=== PATIENT | female | born 1945 | race Caucasian/White ===

== ENCOUNTER 2017-11-23 23:02 | Observation (INO) ==
[2017-11-23] MEDS ORDERED: Ipratropium/Albuterol Neb 3 ML IH ONE (23:19)
[2017-11-23] MEDS ORDERED: methylPREDNISolone 125 MG/2 ML VIAL IVP ONE (23:20)
--- NOTE | 2017-11-23 23:21 | Emergency Department Note ---
Disposition Clinical Impression: Acute exacerbation of chronic obstructive airways disease Disposition: Admitted As Inpatient Condition: Good Referrals: Nash Ren MD [Primary Care Provider] - Forms: ED Satisfaction Letter Time of Disposition: 01:41 SOB HPI - General Chief Complaint: ED Shortness of Breath/Dyspnea Stated Complaint: JOIE Time Seen by Provider: 11/23/17 23:10 Source: patient, EMS Mode of arrival: EMS Limitations: no limitations Nursing Notes Reviewed: Yes Vital Signs Reviewed: Yes - History of Present Illness Patient is a 71-year-old female with past medical history of CHF, COPD, pacemaker placement. She presents today due to shortness of breath. She states that she has been short of breath over the past 2 months. However, it has significantly worsened over the past 1 week. Denies any productive phlegm, any fevers, nausea, vomiting, diarrhea, abdominal pain denies being on any antibiotics or prednisone currently. Denies any increased lower extremity swelling. - Related Data Allergies Allergy/AdvReac Type Severity Reaction Status Date / Time morphine Allergy Rash Verified 11/23/17 23:33 prednisone Allergy Rash Verified 11/23/17 23:33 All systems ED: reviewed and negative except as stated. Constitutional: Denies: fever Cardiovascular: Denies: chest pain, palpitations Respiratory: Reports: cough, dyspnea, wheezes Gastrointestinal: Denies: abdominal pain, nausea, vomiting, diarrhea Genitourinary: Denies: urgency, dysuria Neurological: Denies: headache, weakness, numbness, paresthesias Past Medical History - Past Medical History Attestation: Yes The following information was validated with the patient. Source: patient Physical Exam - General Limitations: no limitations General appearance: alert, in no apparent distress - Head Head exam: atraumatic, normocephalic, normal inspection - Eye Eye exam: Present: normal appearance, PERRL, EOMI - ENT ENT exam: normal exam, normal oropharynx, mucous membranes moist - Neck Neck exam: Present: normal inspection, full ROM, trachea midline - Chest Chest inspection: Present: normal inspection, symmetric chest wall rise - Respiratory Respiratory exam: Present: other (Decreased aeration throughout, wheeze and crackle in bilateral lower lobes.) - Cardiovascular Cardiovascular exam: Present: regular rate, normal rhythm, normal heart sounds - Abdominal Exam Abdominal exam: Present: soft, Non-Tender. Absent: tenderness, distention, guarding, rebound, rigidity - Extremities Exam Extremities exam: Present: normal inspection, full ROM. Absent: tenderness, pedal edema - Neurological Exam Neurological exam: Present: alert, oriented X3 - Psychiatric Psychiatric exam: Present: normal affect, normal mood - Skin Skin exam: Present: warm, dry, intact, normal color Course Course Narrative: Currently concern for COPD exacerbation. Patient given Solu-Medrol, DuoNeb 3. Currently satting 95% on room air but is having some mild to moderate labored breathing. We will obtain chest x-ray, basic blood work. EKG shows no acute ST changes, paced rhythm. Likely admission. 01:40 BNP negative, troponin negative, no elevation white blood cell count. Chest x-ray negative for any acute cardio pulmonary process. Patient is still requiring 2 L nasal cannula oxygen, still has increased work of breathing despite medication. I discussed admission with the patient and she was agreeable with this plan. We will also started azithromycin for COPD exacerbation. Patient was accepted for admission by Dr. Wood. Chest X-Ray 11/23/17 23:18 IMPRESSION: No acute cardiopulmonary disease. D/ / Dheeraj Bateman MD / Dheeraj Bateman MD Interpreting Provider: Dheeraj Bateman MD Vital Signs Temperature 98.4 F 11/23/17 23:06 Pulse Rate 66 11/23/17 23:06 Respiratory Rate 20 11/23/17 23:06 Blood Pressure 153/86 11/23/17 23:06 O2 Sat by Pulse Oximetry 95 11/23/17 23:06 Temperature 98.4 F 11/23/17 23:06 Pulse Rate 62 11/24/17 00:48 Respiratory Rate 17 11/24/17 00:48 Blood Pressure 127/80 11/24/17 00:48 O2 Sat by Pulse Oximetry 97 11/24/17 00:48 Oxygen Delivery Oxygen Delivery Nasal Cannula Shortness of Breath/Dyspnea - [facility] Narrative Medical decision making narrative: Currently concern for COPD exacerbation. Patient given Solu-Medrol, DuoNeb 3. Currently satting 95% on room air but is having some mild to moderate labored breathing. We will obtain chest x-ray, basic blood work. EKG shows no acute ST changes, paced rhythm. Likely admission. 01:40 BNP negative, troponin negative, no elevation white blood cell count. Chest x-ray negative for any acute cardio pulmonary process. Patient is still requiring 2 L nasal cannula oxygen, still has increased work of breathing despite medication. I discussed admission with the patient and she was agreeable with this plan. We will also started azithromycin for COPD exacerbation. Patient was accepted for admission by Dr. Wood. - Medical Records Medical records reviewed: Yes I reviewed the patient's medical records. - Lab Data Lab results reviewed: Yes I reviewed the patient's lab results. Result diagrams: 11/23/17 23:45 11/23/17 23:45 Lab Results 11/23/17 11/23/17 11/23/17 Range/Units 23:45 23:45 23:45 WBC 7.7 (4.3-11.1) K/mcL RBC 4.61 (3.82-4.97) M/mcL Hgb 13.8 (11.5-15.4) g/dL Hct 41.4 (35.3-44.9) % MCV 89.8 (83.0-100.0) fL MCH 29.9 (28.0-33.3) pg MCHC 33.3 (31.6-35.5) g/dL RDW 12.0 (11.5-14.5) % Plt Count 176 (140-400) K/mcL MPV 9.8 (9.4-12.4) fL Immature Gran % 0.4 (0-4) % Seg Neutrophils % 73.5 % Lymphocytes % 16.6 % Monocytes % 8.2 % Eosinophils % 1.0 % Basophils % 0.3 % Neutrophils # 5.6 (1.6-8.9) K/mcL Lymphocytes # 1.3 (0.6-4.6) K/mcL Monocytes # 0.6 (0.0-1.3) K/mcL Eosinophils # 0.1 (0.0-0.6) K/mcL Basophils # 0.0 (0.0-0.2) K/mcL Sodium 140 (136-145) mEq/L Potassium 4.0 (3.5-5.1) mEq/L Chloride 103 (98-107) mEq/L Carbon Dioxide 32 H (23-29) mEq/L BUN 13 (8-23) mg/dL Creatinine 0.68 (0.60-1.20) mg/dL Est GFR ( Amer) > 60 (> 60) Est GFR (Non-Af Amer) > 60 (> 60) BUN/Creatinine Ratio 19 (6-26) Glucose 127 H (70-105) mg/dL Calculated Osmolality 292 (280-300) Lactic Acid 0.8 (0.5-2.2) mmol/L Calcium 9.8 (8.6-10.3) mg/dL Troponin I < 0.03 (< 0.04) ng/mL B-Natriuretic Peptide (Less than 100) pg/mL 11/23/17 Range/Units 23:45 WBC (4.3-11.1) K/mcL RBC (3.82-4.97) M/mcL Hgb (11.5-15.4) g/dL Hct (35.3-44.9) % MCV (83.0-100.0) fL MCH (28.0-33.3) pg MCHC (31.6-35.5) g/dL RDW (11.5-14.5) % Plt Count (140-400) K/mcL MPV (9.4-12.4) fL Immature Gran % (0-4) % Seg Neutrophils % % Lymphocytes % % Monocytes % % Eosinophils % % Basophils % % Neutrophils # (1.6-8.9) K/mcL Lymphocytes # (0.6-4.6) K/mcL Monocytes # (0.0-1.3) K/mcL Eosinophils # (0.0-0.6) K/mcL Basophils # (0.0-0.2) K/mcL Sodium (136-145) mEq/L Potassium (3.5-5.1) mEq/L Chloride (98-107) mEq/L Carbon Dioxide (23-29) mEq/L BUN (8-23) mg/dL Creatinine (0.60-1.20) mg/dL Est GFR ( Amer) (> 60) Est GFR (Non-Af Amer) (> 60) BUN/Creatinine Ratio (6-26) Glucose (70-105) mg/dL Calculated Osmolality (280-300) Lactic Acid (0.5-2.2) mmol/L Calcium (8.6-10.3) mg/dL Troponin I (< 0.04) ng/mL B-Natriuretic Peptide 14 (Less than 100) pg/mL - Radiology Data Radiology results reviewed: Yes I reviewed the patient's radiology results. - EKG Data EKG attestation: Yes I reviewed and interpreted this EKG. EKG results narrative: 11/23/2017 at 23:11. Paced rhythm. Rate 77. ID 124. QRS 170. QTC 4-37. No acute ST elevation or depression.
[2017-11-23 23:57] LABS: Basophils % 0.3 %; Eosinophils # 0.1 K/mcL (0.0-0.6); Hematocrit 41.4 % (35.3-44.9); Hemoglobin 13.8 g/dL (11.5-15.4); Immature Granulocytes % 0.4 % (0-4); Lymphocytes # 1.3 K/mcL (0.6-4.6); Lymphocytes % 16.6 %; Mean Corpuscular HGB Conc 33.3 g/dL (31.6-35.5); Mean Corpuscular Hemoglobin 29.9 pg (28.0-33.3); Mean Corpuscular Volume 89.8 fL (83.0-100.0); Mean Platelet Volume 9.8 fL (9.4-12.4); Monocytes # 0.6 K/mcL (0.0-1.3); Monocytes % 8.2 %; Neutrophils # 5.6 K/mcL (1.6-8.9); Platelet Count 176 K/mcL (140-400); Red Blood Count 4.61 M/mcL (3.82-4.97); Segmented Neutrophils % 73.5 %
--- NOTE | 2017-11-24 00:15 | Emergency Department Note ---
Disposition Clinical Impression: Acute exacerbation of chronic obstructive airways disease Disposition: Still a Patient Referrals: Nash Ren MD [Primary Care Provider] - Forms: ED Satisfaction Letter General Adult HPI - General Chief complaint: ED Shortness of Breath/Dyspnea Stated complaint: JOIE Time Seen by Provider: 11/23/17 23:10 Source: patient, EMS Mode of arrival: EMS Limitations: no limitations - History of Present Illness Pain Scale: 0 - Related Data Allergies Allergy/AdvReac Type Severity Reaction Status Date / Time morphine Allergy Rash Verified 11/23/17 23:33 prednisone Allergy Rash Verified 11/23/17 23:33 Past Medical History - Past Medical History Medical history: Reports: CHF, COPD, hypertension Psychiatric history: Reports: anxiety - Social History Smoking Status: Former smoker Alcohol use: Reports: none Drug use: Reports: none Physical Exam - General Limitations: no limitations General appearance: alert Course - Reevaluation(s) Reevaluation #1: Attestation note I examined this patient and my medical decision-making was reviewed with the emergency medicine resident. I agree with the documented findings, disposition and treatment plan as described except to the extent set forth below. Patient seen with emergency medicine resident Dr. Rikki Cha, Please see a copy of his note for details of the H&P, ED evaluation, management and disposition. I have independently evaluated the patient and confirmed appropriate portions of the history and physical exam. Briefly: 71-year-old female by EMS for increasing shortness breath. Patient has a history of oxygen-dependent COPD and is smoker. She has bilateral expiratory wheezing. Rhonchi. Patient getting DuoNeb steroids chest x-ray screening labs EKG admission anticipated. Provided 30 minutes critical care service for this patient. Disposition pending Time: 00:14 Vital Signs Temperature 98.4 F 11/23/17 23:06 Pulse Rate 66 11/23/17 23:06 Respiratory Rate 20 11/23/17 23:06 Blood Pressure 153/86 11/23/17 23:06 O2 Sat by Pulse Oximetry 95 11/23/17 23:06 Temperature 98.4 F 11/23/17 23:06 Pulse Rate 60 11/23/17 23:53 Respiratory Rate 20 11/23/17 23:53 Blood Pressure 127/101 11/23/17 23:53 O2 Sat by Pulse Oximetry 99 11/23/17 23:53 Oxygen Delivery Oxygen Delivery Aerosol Mask Medical Decision Making - Lab Data Result diagrams: 11/23/17 23:45 Lab Results 11/23/17 11/23/17 Range/Units 23:45 23:45 WBC 7.7 (4.3-11.1) K/mcL RBC 4.61 (3.82-4.97) M/mcL Hgb 13.8 (11.5-15.4) g/dL Hct 41.4 (35.3-44.9) % MCV 89.8 (83.0-100.0) fL MCH 29.9 (28.0-33.3) pg MCHC 33.3 (31.6-35.5) g/dL RDW 12.0 (11.5-14.5) % Plt Count 176 (140-400) K/mcL MPV 9.8 (9.4-12.4) fL Immature Gran % 0.4 (0-4) % Seg Neutrophils % 73.5 % Lymphocytes % 16.6 % Monocytes % 8.2 % Eosinophils % 1.0 % Basophils % 0.3 % Neutrophils # 5.6 (1.6-8.9) K/mcL Lymphocytes # 1.3 (0.6-4.6) K/mcL Monocytes # 0.6 (0.0-1.3) K/mcL Eosinophils # 0.1 (0.0-0.6) K/mcL Basophils # 0.0 (0.0-0.2) K/mcL Lactic Acid 0.8 (0.5-2.2) mmol/L
[2017-11-24 00:25] LABS: BUN/Creatinine Ratio 19 (6-26); Blood Urea Nitrogen 13 mg/dL (8-23); Calcium 9.8 mg/dL (8.6-10.3); Carbon Dioxide 32 mEq/L (23-29); Chloride 103 mEq/L (98-107); Glucose 127 mg/dL (70-105); Osmolality,Calculated 292 (280-300); Sodium 140 mEq/L (136-145); eGFR For African Americans > 60 (> 60); eGFR For Non-African Americans > 60 (> 60)
[2017-11-24 00:26] LABS: Troponin I < 0.03 ng/mL (< 0.04)
[2017-11-24] MEDS ORDERED: Azithromycin 500 MG in D5% in Water 250 ML IVPB ONE (01:05)
[2017-11-24] MEDS ORDERED: Naloxone 0.4 MG/ML INJ IVP PRN (03:42)
[2017-11-24] MEDS ORDERED: Ipratropium/Albuterol Neb 3 ML IH PRN (03:46)
--- NOTE | 2017-11-24 04:34 | Internal Med History&Physical ---
Date of Encounter: 11/24/17 Time of Encounter: 03:00 Internal Medicine - H&P: HPI Chief complaint: Shortness of breath Admitted From: Home Plans for Post Hospital Care: Home History of present illness: Ms. Corrales is a 71 year old female shortness of breath. 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 Patient has progressively increased shortness of breath in last several months. Especially in recent 2-3 weeks, patient needs to use oxygen, which she does not need to use previously. Patient also complaining of intermittent chest heaviness/chest pain, last about 30 minutes for each episode, no radiation. Patient denies nausea or diaphoresis during chest heaviness. Patient has occasionally leg swelling. Patient obviously has exertional intolerance. Patient denies a fever. Patient has a mild nonproductive cough. Patient denies significant body weight loss or body weight gain. In the emergency room , patient was treated with nebulizer and steroid and antibiotic and was admitted as COPD exacerbation. Past Med Surg Social Fam HX - Past Medical History Medical history: CHF, COPD, hypertension Psychiatric history: anxiety - Past Surgical History Surgical History: pacemaker/AICD - Social History Smoking Status: Former smoker Alcohol use: none Drug use: none - Family History Brother Hx Family Cardiac Disorders: Yes (afib) Daughter Hx Family Cardiac Disorders: Yes (tachycardia) Internal Medicine - H&P: Meds Albuterol Sulfate [Ventolin Hfa] 8 gm IH 11/24/17 [History] Aspirin [Adult Aspirin] 81 mg PO DAILY 11/24/17 [History] Carvedilol 3.125 mg PO BID 11/24/17 [History] Fluticasone/Salmeterol [Advair 250-50 Diskus] 11/24/17 [History] Furosemide [Lasix] 10 mg PO DAILY 11/24/17 [History] Lisinopril [Zestril] 20 mg PO DAILY 11/24/17 [History] 3 Allergy/AdvReac Type Severity Reaction Status Date / Time morphine Allergy Rash Verified 11/23/17 23:33 prednisone Allergy Rash Verified 11/23/17 23:33 All Systems PM: A 10-system review of systems was performed and is negative for pertinent findings except as documented above in the HPI. - Constitutional Vitals: Temp Pulse Resp BP Pulse Ox 98.0 F 82 16 144/74 96 11/24/17 02:54 11/24/17 02:54 11/24/17 02:54 11/24/17 02:54 11/24/17 02:54 General appearance: Present: A&O X 3, no acute distress, answers questions appropriately - Head Head exam: Present: atraumatic, normocephalic - Eye Eye exam: Present: PERRL, conjuntiva pink, sclera anicteric Pupils: Present: PERRL - Neck Neck exam general surgery: Present: supple, trachea midline. Absent: lymphadenopathy - Respiratory Respiratory exam: Present: CTAB. Absent: accessory muscle use, rales, rhonchi, wheezes - Cardiovascular Cardiovascular exam: Present: RRR, +S1, +S2. Absent: diastolic murmur, gallop, rubs, systolic murmur - GI/Abdominal GI/Abdominal exam: Present: normal bowel sounds, soft, no peritoneal signs. Absent: distended, tenderness - Extremities Exam Extremities exam: Present: warm, radial pulses palpable and symmetrical. Absent : calf tenderness, cyanotic, pedal edema - Neurological Exam Neurological exam: Present: CN II-XII intact, oriented X3, no focal deficits. Absent: pronater drift, facial droop, speech deficit - Skin Skin exam: Present: dry, intact Internal Med - H&P Results - Labs CBC & Chem 7: 11/23/17 23:45 11/23/17 23:45 - EKG Data -: EKG Interpreted by Myself (Pacemaker rhythm) - Assessment and plan (1) Shortness of breath Current Visit: Yes Status: Acute Assessment and plan: Patient has exertional shortness of breath. Progressively getting worse. Need oxygen at this point. Chest x-ray negative for acute abnormalities. - Consider progressively worsening COPD - Also need to rule out heart disease like pulmonary hypertension. BNP is within normal limit - Place patient on oxygen supportive treatment, inhale bronchodilator and steroid - Check echocardiogram (2) COPD (chronic obstructive pulmonary disease) Current Visit: Yes Status: Acute Assessment and plan: Patient has no wheezing. Continue home medications. Qualifiers: COPD type: emphysema Emphysema type: unspecified Qualified Code(s): J43.9 - Emphysema, unspecified (3) Hypertension Current Visit: Yes Status: Acute Assessment and plan: Continue home medications Qualifiers: Hypertension type: essential hypertension Qualified Code(s): I10 - Essential (primary) hypertension (4) DVT prophylaxis Current Visit: Yes Status: Acute Assessment and plan: Heparin subcutaneously - Time Spent With Patient Total time spent is greater than 50% in coordination of care (as documented) at patient's floor/unit and/or counseling patient: 40 minutes Greater than 35 minutes
[2017-11-24] MEDS: Ipratropium/Albuterol Neb 3 ML IH SCH ×4 (04:48→23:00)
[2017-11-24 05:41] LABS: Basophils % 0.2 %; Hematocrit 42.2 % (35.3-44.9); Hemoglobin 14.3 g/dL (11.5-15.4); Immature Granulocytes % 0.5 % (0-4); Lymphocytes # 0.6 K/mcL (0.6-4.6); Lymphocytes % 10.7 %; Mean Corpuscular HGB Conc 33.9 g/dL (31.6-35.5); Mean Corpuscular Hemoglobin 30.6 pg (28.0-33.3); Mean Corpuscular Volume 90.2 fL (83.0-100.0); Mean Platelet Volume 10.2 fL (9.4-12.4); Monocytes # 0.1 K/mcL (0.0-1.3); Monocytes % 1.5 %; Neutrophils # 5.2 K/mcL (1.6-8.9); Platelet Count 176 K/mcL (140-400); Red Blood Count 4.68 M/mcL (3.82-4.97); Red Cell Distribution Width 11.9 % (11.5-14.5); Segmented Neutrophils % 87.1 %
[2017-11-24 05:55] LABS: BUN/Creatinine Ratio 19 (6-26); Blood Urea Nitrogen 11 mg/dL (8-23); Calcium 9.5 mg/dL (8.6-10.3); Carbon Dioxide 29 mEq/L (23-29); Chloride 103 mEq/L (98-107); Glucose 145 mg/dL (70-105); Magnesium 1.9 mg/dL (1.6-2.6); Osmolality,Calculated 290 (280-300); Phosphorous 2.3 mg/dL (2.7-4.5); Sodium 139 mEq/L (136-145); eGFR For African Americans > 60 (> 60); eGFR For Non-African Americans > 60 (> 60)
[2017-11-24] MEDS: *HR* Heparin 5,000 UNIT/ML VIAL SQ SCH ×2 (05:55→17:41)
[2017-11-24 05:57] LABS: Troponin I < 0.03 ng/mL (< 0.04)
[2017-11-24] MEDS: Aspirin Enteric Coated 81 MG Tablet PO SCH (07:28)
[2017-11-24] MEDS: Lisinopril 20 MG TABLET PO SCH (07:28)
[2017-11-24] MEDS: Budesonide/Formoterol 160/4.5 MDI IH SCH ×2 (10:21→23:00)
[2017-11-24] MEDS: Acetaminophen 325 MG TABLET PO PRN ×2 (14:48→21:18)
[2017-11-24] MEDS: Pantoprazole 40 MG VIAL IVP SCH (14:48)
[2017-11-24] MEDS: Furosemide 20 MG TABLET PO SCH (14:49)
--- NOTE | 2017-11-24 14:51 | Event Note ---
Date of Encounter: 11/24/17 Time of Encounter: 14:48 Patient seen and examined at the bedside. Seen after thorough evaluation of the EMR. She has been admitted here for COPD exacerbation. Patient states she is allergic to prednisone. I will continue her on IV Solu-Medrol for now and then switch her to Medrol Dosepak at the time of discharge. Rest of the assessment and plan as per H&P
[2017-11-24] MEDS: MethylPREDNISolone 40 MG/ML VIAL IVP SCH (17:41)
--- NOTE | 2017-11-24 19:08 | Electrocardiograph Report ---
[address] [place], [place] [address] Test Date: 2017-11-23 Pat Name: Rossy Corrales Department: 102 Room: 3B11 Gender: F [employer]: Ct : 1945 Requested By: Rikki Cha Order Number: [id number] Reading MD: José Miguel Kidd Measurements Intervals [place] Rate: 77 P: 55 AR: 124 QRS: 175 QRSD: 170 T: 34 QT: 405 QTc: 437 Interpretive Statements ELECTRONIC VENTRICULAR PACEMAKER ABNORMAL RHYTHM ECG Electronically Signed On 11-24-2017 19:07:04 EDT by José Miguel Kidd
[2017-11-25] MEDS: Ipratropium/Albuterol Neb 3 ML IH SCH ×4 (03:41→22:45)
[2017-11-25] MEDS: MethylPREDNISolone 40 MG/ML VIAL IVP SCH ×2 (05:13→17:24)
[2017-11-25] MEDS: *HR* Heparin 5,000 UNIT/ML VIAL SQ SCH ×2 (05:14→17:24)
[2017-11-25] MEDS: Acetaminophen 325 MG TABLET PO PRN ×2 (05:23→17:24)
[2017-11-25] MEDS: Furosemide 20 MG TABLET PO SCH (08:06)
[2017-11-25] MEDS: Pantoprazole 40 MG VIAL IVP SCH (08:06)
[2017-11-25] MEDS: Lisinopril 20 MG TABLET PO SCH (08:06)
[2017-11-25] MEDS: Aspirin Enteric Coated 81 MG Tablet PO SCH (08:07)
[2017-11-25] MEDS: Budesonide/Formoterol 160/4.5 MDI IH SCH ×2 (10:27→22:45)
[2017-11-25] MEDS ORDERED: *HR* LORazepam 0.5 MG TABLET PO PRN (13:52)
--- NOTE | 2017-11-25 13:55 | Internal Med Progress Note ---
Date of Encounter: 11/25/17 Time of Encounter: 13:53 - Assessment and plan (1) COPD (chronic obstructive pulmonary disease) Current Visit: Yes Status: Acute Assessment and plan: Acute exacerbation of chronic obstructive pulmonary disease. Patient is intermittently wheezing at this point. I will continue the IV steroids for now. Hoping to transition to oral steroids tomorrow and discharge the patient. She does have home oxygen. Qualifiers: COPD type: emphysema Emphysema type: unspecified Qualified Code(s): J43.9 - Emphysema, unspecified (2) Shortness of breath Current Visit: Yes Status: Acute Assessment and plan: Patient has exertional shortness of breath. Progressively getting worse. Need oxygen at this point. Chest x-ray negative for acute abnormalities. - Consider progressively worsening COPD - Also need to rule out heart disease like pulmonary hypertension. BNP is within normal limit - Place patient on oxygen supportive treatment, inhale bronchodilator and steroid - Check echocardiogram 11/25/17-better today. We will continue to monitor closely. See plan above (3) Hypertension Current Visit: Yes Status: Acute Assessment and plan: Continue to monitor on antihypertensives Qualifiers: Hypertension type: essential hypertension Qualified Code(s): I10 - Essential (primary) hypertension (4) DVT prophylaxis Current Visit: Yes Status: Acute Assessment and plan: Heparin subcutaneously - Time Spent With Patient Total time spent is greater than 50% in coordination of care (as documented) at patient's floor/unit and/or counseling patient: 25 - 35 minutes - Subjective Interval history: Patient continues to be short of breath although improved since yesterday. She denies any new chest pain or fevers at this time - Constitutional Vitals: Temp Pulse Resp BP Pulse Ox 98.0 F 64 16 118/69 97 11/25/17 10:25 11/25/17 10:25 11/25/17 10:29 11/25/17 10:25 11/25/17 10:29 General appearance: Present: A&O X 3, no acute distress, answers questions appropriately Exam: GENERAL: Alert, moderate distress, cooperative EYES: PERRLA, EOMI EARS: External ears normal, canals clear OROPHARYNX: Lips, mucosa, and tongue normal. Teeth and gums normal. Oropharynx normal. NECK: No jugulovenous distention, No carotid bruits, Carotid pulse normal contour, Supple LUNGS: Coarse rhonchi bilateral lung tariq CARDIAC: Normal S1 and S2; no rubs, murmurs, or gallops Internal Medicine: Result - Labs CBC & Chem 7: 11/24/17 05:01 11/24/17 05:01 Labs: Cardiac Enzymes 11/24/17 Range/Units 12:01 Troponin I < 0.03 (< 0.04) ng/mL - Impressions Impressions Echocardiogram 11/24/17 03:48 Impressions: LVEF 55-60%. Normal LV chamber size, wall thickness and function. Mild left ventricular diastolic dysfunction. Atypical septal motion consistent with paced rhythm. Normal right ventricular structure and function. Borderline mild pulmonary hypertension. No significant valvular dysfunction. Left Ventricular Wall Motion: Rest Echo Findings All wall segments showed normal motion. Findings: Study Quality * Technically adequate exam. ECG Findings * Paced rhythm. Left Ventricle * LVEF 55-60%. * Normal LV chamber size, wall thickness and function. * Mild left ventricular diastolic dysfunction. * Atypical septal motion consistent with paced rhythm. Right Ventricle * Normal right ventricular structure and function. Left Atrium * Mildly dilated left atrium. Right Atrium * Mildly dilated right atrium. Aortic Valve * Aortic valve not well visualized. * No aortic regurgitation. * No aortic stenosis. Mitral Valve * Normal mitral valve structure and function. * No mitral regurgitation. * No mitral stenosis. Tricuspid Valve * Normal tricuspid valve structure and function. * Trace tricuspid regurgitation. * Borderline mild pulmonary hypertension. Pulmonic Valve * Normal pulmonic valve structure and function. * No pulmonic regurgitation. Aorta * Normally sized aortic root. Pericardium * The pericardium appears normal. IVC * Normal IVC dimensions and inspiratory collapse. Pulmonary Artery * Normal visualized portions of the main pulmonary artery. Device lead * A device lead was visualized in the right atrium and right ventricle. Consult Discharge Plan - Plan Referrals: Nash Ren MD [Primary Care Provider] -
[2017-11-26] MEDS: Ipratropium/Albuterol Neb 3 ML IH SCH ×2 (04:20→10:38)
[2017-11-26] MEDS: *HR* Heparin 5,000 UNIT/ML VIAL SQ SCH (05:49)
[2017-11-26] MEDS: MethylPREDNISolone 40 MG/ML VIAL IVP SCH (05:49)
[2017-11-26 07:36] VITALS: BP 108/58
[2017-11-26] MEDS: Aspirin Enteric Coated 81 MG Tablet PO SCH (07:43)
[2017-11-26] MEDS: Lisinopril 20 MG TABLET PO SCH (07:43)
[2017-11-26] MEDS: Furosemide 20 MG TABLET PO SCH (07:43)
[2017-11-26] MEDS: Pantoprazole 40 MG VIAL IVP SCH (07:43)
--- NOTE | 2017-11-26 09:54 | Discharge Summary ---
<Sagar Love S - Last Filed: 11/26/17 13:36> - NOTES TO OUTPATIENT PROVIDER Notes to Outpatient Provider: Pt admitted for COPD exacerbation.She had complaints of SOB on friday afternoon and started getting palpiltations, feeling like she coulnd't breathe and like her chest had dull pain on the left side, no radiation. She was on IV steroids in the hospital and will be transferred to PO steroids today and discharged. D/c on Medrol pack. Pt should follow up for COPD management and to evaluate possible mild pulmonary HTN further. ECHO showed EF 55-60% with mild pulmonary HTN. Pt should be vaccinated for pneumococcal species if she hasn't already. Encourage flu vaccine this winter. Date of Encounter: 11/26/17 Time of Encounter: 09:30 - Discharge Diagnosis (1) COPD (chronic obstructive pulmonary disease) Priority: Primary Status: Chronic Assessment and Plan: Acute on chronic COPD exacerbation. Duonebs and Symbicort given for symptoms. Pt was on IV methylprednisolone and will be transferred to PO steroids today. Gave Medrol dose pack taper. She is on home oxygen as needed. Weaning patient off oxygen Pt denies cough, mucus production. No indication that there is infxn. CXR showed no consolidation or acute cardiopulonary processes. No antibiotics indicated Discharge pt. Qualifiers: COPD type: emphysema Emphysema type: unspecified Qualified Code(s): J43.9 - Emphysema, unspecified (2) Hypertension Priority: Secondary Status: Chronic Assessment and Plan: Continue to monitor Pt is on anti hypertensive medications - carvediol BP today is 108/58; stable BP and controlled Qualifiers: Hypertension type: essential hypertension Qualified Code(s): I10 - Essential (primary) hypertension (3) DVT prophylaxis Priority: Secondary Status: Acute Assessment and Plan: SQ heparin Hospital course: Ms. Corrales is a 71 year old female that came to hospital on friday. Pt admitted for COPD exacerbation.She had complaints of SOB on friday afternoon and started getting palpiltations, feeling like she coulnd't breathe and like her chest had dull pain on the left side, no radiation. She was on IV steroids in the hospital and will be transferred to PO steroids today and discharged. Will put pt on Medrol dose pack 4mg taper. ECHO showed LVEF 55-60% , mild pulmonary HTN, and LV diastolic dysfxn CXR showed no acute cardiopulmonary process Pt will be weaned off 2L O2 today to 1L. SHe is on home oxygen as needed. Pt should be vaccinated for pneumococcal species if she hasn't already. Encourage flu vaccine this winter. Discharge discussed with: patient Time spent discussing smoking cessation with patient: 3 to 10 minutes - Time Spent with Patient Total time spent providing and/or coordinating discharge services: Less than 30 minutes - Discharge Medications Prescriptions: MethylPREDNISolone [MethylPREDNISolone Dose Pack] 4 mg PO TAPER #21 tab Home Medications: Albuterol Neb [Proventil Neb] 3 ml IH TID 11/24/17 [History] Albuterol Sulfate [Ventolin Hfa] 2 puff IH Q4H 11/24/17 [History] Aspirin [Adult Aspirin] 81 mg PO DAILY 11/24/17 [History] Carvedilol [Carvedilol] 12.5 mg PO BID 11/24/17 [History] DiphenhydraMINE [Benadryl] 25 mg PO HS 11/24/17 [History] Fluticasone/Salmeterol [Advair 250-50 Diskus] 1 puff IH BID 11/24/17 [History] Furosemide [Lasix] 20 mg PO DAILY 11/24/17 [History] LORazepam [Ativan] 0.5 mg PO BID PRN 11/24/17 [History] Lisinopril [Zestril] 20 mg PO DAILY 11/24/17 [History] MethylPREDNISolone [MethylPREDNISolone Dose Pack] 4 mg PO TAPER #21 tab [Rx] Allergies/Adverse Reactions: 3 Allergy/AdvReac Type Severity Reaction Status Date / Time morphine Allergy Rash Verified 11/24/17 20:22 prednisone Allergy Rash Verified 11/24/17 20:22 Date of admission: 11/24/17 01:43 Primary care physician: Nash Ren MD - Constitutional Vitals: Temp Pulse Resp BP Pulse Ox 98.1 F 61 18 108/58 97 11/26/17 07:33 11/26/17 07:33 11/26/17 07:33 11/26/17 07:33 11/26/17 07:54 General appearance: Present: A&O X 3, no acute distress, answers questions appropriately - Head Head exam: Present: normal inspection - Neck Neck exam general surgery: Present: supple - Respiratory Respiratory exam: Present: decreased breath sounds, prolonged expiratory phase - Cardiovascular Cardiovascular exam: Present: RRR, +S1, +S2 - GI/Abdominal GI/Abdominal exam: Present: normal bowel sounds, no peritoneal signs - Extremities Exam Extremities exam: Present: normal capillary refill, normal inspection - Neurological Exam Neurological exam: Present: no focal deficits - Psychiatric Psychiatric exam: Present: normal affect, normal mood - Skin Skin exam: Present: intact - Patient Status Disposition: Home, Self-Care Condition: Good Functional capacity at discharge: independent ambulation Overall status at discharge: patient is progressing back to baseline - Discharge Instructions Instructions: Chronic Obstructive Pulmonary Disease (DC), Chronic Hypertension (DC), Dyspnea (GEN) Follow Up With: Nash Ren MD [Primary Care Provider] - 12/03/17 10:15 am - Diet and Activity Activity: increase activity as tolerated Diet: low fat, low cholesterol, low salt diet <CoryBjcayetano Guzman - Last Filed: 11/26/17 13:55> Date of Encounter: 11/26/17 - Discharge Diagnosis (1) COPD (chronic obstructive pulmonary disease) Status: Chronic (2) Hypertension Status: Chronic (3) DVT prophylaxis Status: Acute Hospital course: Ms. Corrales is a 71 year old female - Time Spent with Patient Total time spent providing and/or coordinating discharge services: Date of admission: 11/24/17 01:43 Primary care physician: Nash Ren MD - Constitutional Vitals: Temp Pulse Resp BP Pulse Ox 98.1 F 61 18 108/58 90 11/26/17 07:33 11/26/17 07:33 11/26/17 10:59 11/26/17 07:33 11/26/17 10:59 - Attending Attestation Patiet seen and examined with resident and participated in mosqueda clinical decision making Clinically doing much better Exam lynch- RS- wheezing improved Okay or DC w prolonged taper ( Medrol dose pk) Follow with PCP outpatient
[2017-11-26] MEDS: Acetaminophen 325 MG TABLET PO PRN (10:38)
[2017-11-26] MEDS: Budesonide/Formoterol 160/4.5 MDI IH SCH (10:58)
--- NOTE | 2017-11-26 18:58 | Electrocardiograph Report ---
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
== END 2017-11-26 11:13 | disposition home or self-care (01) ==
LOC: 3NENU 23:02 → EMEROO 23:02 → SUATTDRO 11-24 01:43 → 3NENU 11-24 03:13 → 3BNU 11-24 14:03
PROVIDERS: ADMIT Internal Medicine; ATTEND Internal Medicine

== ENCOUNTER 2018-03-20 01:50 | Inpatient (IN) ==
[2018-03-20] MEDS ORDERED: Ipratropium/Albuterol Neb 3 ML IH ONE ×3 (01:59→05:41)
--- NOTE | 2018-03-20 02:15 | Emergency Department Note ---
Disposition Clinical Impression: Shortness of breath, Tachycardia, Elevated troponin Pneumonia Qualifiers: Pneumonia type: due to unspecified organism Laterality: right Lung location: middle lobe of lung Qualified Code(s): J18.1 - Lobar pneumonia, unspecified organism Disposition: Admitted As Inpatient Condition: Good Time of Disposition: 03:11 General Adult HPI - General Chief complaint: ED Shortness of Breath/Dyspnea Stated complaint: jose l Time Seen by Provider: 03/20/18 01:55 Source: patient, EMS Limitations: no limitations Nursing Notes Reviewed: Yes Vital Signs Reviewed: Yes - History of Present Illness HPI Narrative: Patient is a 72 year old female that presents emergency department for shortness of breath. Patient states this is been ongoing for the last 24-48 hours. Patient states that she has had a cough as well with productive green sputum. Patient states that she has a history of COPD and her breathing has gotten worse. Patient states that she does use oxygen as needed at home. Patient states that she wears 2 L of oxygen as needed at home however has been requiring to wear oxygen continuously due to having worsening of her respiratory status. Patient states that she does use breathing treatments at home and they have been helping however this evening she stated that the breathing treatment did not relieve her symptoms. Patient denies any fever. Patient denies any chest pain at this time. Pain Scale: 0 - Related Data Home Medications Medication Instructions Recorded Confirmed Albuterol Neb [Proventil Neb] 3 ml IH TID 11/24/17 11/24/17 Albuterol Sulfate [Ventolin Hfa] 2 puff IH Q4H 11/24/17 11/24/17 Aspirin [Adult Aspirin] 81 mg PO DAILY 11/24/17 11/24/17 Carvedilol 12.5 mg PO BID 11/24/17 11/24/17 DiphenhydraMINE [Benadryl] 25 mg PO HS 11/24/17 11/24/17 Fluticasone/Salmeterol [Advair 1 puff IH BID 11/24/17 11/24/17 250-50 Diskus] Furosemide [Lasix] 20 mg PO DAILY 11/24/17 11/24/17 RX: LORazepam [Ativan] 0.5 mg PO BID PRN 11/24/17 11/24/17 RX: Lisinopril [Zestril] 20 mg PO DAILY 11/24/17 11/24/17 Previous Rx's Medication Instructions Recorded MethylPREDNISolone 4 mg PO TAPER #21 tab 11/26/17 [MethylPREDNISolone Dose Pack] Allergies Allergy/AdvReac Type Severity Reaction Status Date / Time morphine Allergy Rash Verified 11/24/17 20:22 prednisone Allergy Rash Verified 11/24/17 20:22 All systems ED: reviewed and negative except as stated. Constitutional: Denies: fever Cardiovascular: Denies: chest pain Respiratory: Reports: cough, dyspnea, sputum production Gastrointestinal: Denies: abdominal pain, nausea, vomiting Past Medical History - Past Medical History Medical history: Reports: CHF, COPD, hypertension Surgical history: Reports: pacemaker/AICD Psychiatric history: Reports: anxiety - Social History Smoking Status: Former smoker Alcohol use: Reports: none Drug use: Reports: none Physical Exam - General Limitations: no limitations General appearance: alert, in no apparent distress - Head Head exam: atraumatic, normocephalic - Eye Eye exam: Present: normal appearance, EOMI - Neck Neck exam: Present: normal inspection, full ROM, trachea midline - Respiratory Respiratory exam: Present: wheezes. Absent: respiratory distress - Cardiovascular Cardiovascular exam: Present: normal rhythm, tachycardia, normal heart sounds, +S1, +S2 - Abdominal Exam Abdominal exam: Present: soft, Non-Tender, normal bowel sounds - Extremities Exam Extremities exam: Present: other (Trace peripheral edema.) - Neurological Exam Neurological exam: Present: alert, oriented X3 - Psychiatric Psychiatric exam: Present: normal affect, normal mood - Skin Skin exam: Present: warm, dry, intact Course Vital Signs Temperature 98.1 F 03/20/18 01:54 Pulse Rate 108 03/20/18 01:54 Respiratory Rate 24 03/20/18 01:54 Blood Pressure 137/96 03/20/18 01:54 O2 Sat by Pulse Oximetry 100 03/20/18 01:54 Temperature 98.1 F 03/20/18 01:54 Pulse Rate 108 03/20/18 01:54 Respiratory Rate 29 03/20/18 02:06 Blood Pressure 137/96 03/20/18 01:54 O2 Sat by Pulse Oximetry 99 03/20/18 02:06 Oxygen Delivery Oxygen Delivery Nasal Cannula Medical Decision Making - MDM Narrative Medical decision making narrative: Due the patient's into the emergency department with increased shortness of breath we will obtain basic laboratory testing, EKG and chest x-ray. Patient will also be provided with a DuoNeb breathing treatment here in the emergency department due to the patient having wheezing on exam. Patient did receive the breathing treatment stated did help some but is still feeling short of breath. Patient is requiring increased oxygen from her baseline. Patient requiring 4 L of oxygen here in the emergency department to maintain her oxygen saturation in the mid upper 90s. Patient was found to have a right middle lobe pneumonia on chest x-ray. Patient has been tachycardic into. I do not feel the patient is in severe sepsis and does not require a fluid bolus at this time. Patient will be started on Levaquin IV here in the emergency department will need to be admitted to the hospital for further evaluation and management. I called and spoke with the admitting hospitalist Dr. Arroyo and he has accepted the patient to their service. Patient be admitted to the hospital at this time for further evaluation and management. - Medical Records Medical records reviewed: Yes I reviewed the patient's medical records. - Lab Data Lab results reviewed: Yes I reviewed the patient's lab results. Result diagrams: 03/20/18 02:19 03/20/18 02:19 Lab Results 03/20/18 Range/Units 02:19 WBC 10.1 (4.3-11.1) K/mcL RBC 4.99 H (3.82-4.97) M/mcL Hgb 14.9 (11.5-15.4) g/dL Hct 45.4 H (35.3-44.9) % MCV 91.0 (83.0-100.0) fL MCH 29.9 (28.0-33.3) pg MCHC 32.8 (31.6-35.5) g/dL RDW 12.0 (11.5-14.5) % Plt Count 192 (140-400) K/mcL MPV 9.7 (9.4-12.4) fL - Radiology Data Radiology results reviewed: Yes I reviewed the patient's radiology results. Chest X-Ray 03/20/18 01:56 IMPRESSION: Middle lobe atelectasis or pneumonia. D/ / Galileo Hunter MD / Galileo Hunter MD Interpreting Provider: Galileo Hunter MD - EKG Data EKG #1 EKG attestation: Yes I reviewed and interpreted this EKG. EKG results narrative: EKG shows a paced rhythm at 105 bpm, SC interval of 74, QRS duration of 137 QTC of 544. No evidence of STEMI on EKG. Attestation Statement - Attestation Attestation: Dr Daly note: Pt seen in conjunction w/ Resident Dr Chavez. Please see his charting for complete documentation. I spent face to face time w/ the pt and agree w/ the pt's treatment and disposition; Pt has progressive sob/cough/fever (subjetive) for the past 1 wk; increase in baseline oxygen requirement; + yellow sputum production; labs reviwed; cxr shows new rt middle lobe pneumonia; will require admission for pneumonia w/ hypoxia;
[2018-03-20 02:37] LABS: Hematocrit 45.4 % (35.3-44.9); Hemoglobin 14.9 g/dL (11.5-15.4); Mean Corpuscular HGB Conc 32.8 g/dL (31.6-35.5); Mean Corpuscular Hemoglobin 29.9 pg (28.0-33.3); Mean Platelet Volume 9.7 fL (9.4-12.4); Platelet Count 192 K/mcL (140-400); Red Blood Count 4.99 M/mcL (3.82-4.97)
[2018-03-20 02:54] LABS: BUN/Creatinine Ratio 14 (6-26); Blood Urea Nitrogen 8 mg/dL (8-23); Calcium 9.6 mg/dL (8.6-10.3); Carbon Dioxide 32 mEq/L (23-29); Chloride 96 mEq/L (98-107); Glucose 140 mg/dL (70-105); Osmolality,Calculated 281 (280-300); Potassium 4.2 mEq/L (3.5-5.1); Sodium 135 mEq/L (136-145); eGFR For Non-African Americans > 60 (> 60)
[2018-03-20 02:57] LABS: Troponin I 0.05 ng/mL (< 0.04)
[2018-03-20] MEDS ORDERED: Levofloxacin 750 MG/150 ML 750 MG/150 ML BAG IVPB ONE (03:10)
[2018-03-20] MEDS ORDERED: Ipratropium/Albuterol Neb 3 ML ONE (05:29)
[2018-03-20] MEDS ORDERED: methylPREDNISolone 125 MG/2 ML VIAL IVP ONE (08:14)
[2018-03-20] MEDS: Ipratropium/Albuterol Neb 3 ML IH SCH ×5 (08:41→23:10)
[2018-03-20] MEDS ORDERED: Naloxone 0.4 MG/ML INJ IVP PRN (08:59)
--- NOTE | 2018-03-20 09:05 | Internal Med History&Physical ---
Date of Encounter: 03/20/18 Time of Encounter: 07:00 Internal Medicine - H&P: HPI Chief complaint: Shortness of breath Admitted From: Home Plans for Post Hospital Care: Home History of present illness: Ms. Corrales is a 72 year old female with history of COPD on home oxygen presented to the emergency department with complaint of shortness of breath. As per patient her symptoms began 48 hours prior to admission and progressively worsened to the point that she could not catch her breath so she decided to come to the emergency department for further evaluation. There is at rest and on ambulation. She reports that her symptoms are similar to the symptoms that she had where she was admitted for COPD exacerbation in November 2017. She does report that she is compliant with her home oxygen and inhalers however her symptoms began suddenly and progressed rapidly. She denies sick contacts, recent antibiotics use. He tried her nebulizer treatments at home however they were ineffective. She cannot recall alleviating factors however ambulation aggravates her shortness of breath. She denies leg swelling, calf tenderness, prolonged immobilization. She does complain of cough with productive yellow to green sputum, denies hemoptysis. She does report that she has had a previous intubation for similar symptoms 5 years ago. She denies fever, chills, palpitations, chest pain, nausea, vomiting, diarrhea, heat or cold intolerance. In the emergency department chest x-ray performed which showed possible middle lobe pneumonia and she was endorsed for admission for further management. Past Med Surg Social Fam HX - Past Medical History Medical history: CHF, COPD, hypertension Psychiatric history: anxiety - Past Surgical History Surgical History: pacemaker/AICD - Social History Smoking Status: Former smoker Alcohol use: none Drug use: none - Family History Brother History Unknown: Yes Hx Family Cardiac Disorders: Yes (afib) Daughter History Unknown: Yes Hx Family Cardiac Disorders: Yes (tachycardia) Internal Medicine - H&P: Meds Albuterol Neb [Proventil Neb] 3 ml IH TID 11/24/17 [History] Albuterol Sulfate [Ventolin Hfa] 2 puff IH Q4H 11/24/17 [History] Aspirin [Adult Aspirin] 81 mg PO DAILY 11/24/17 [History] Carvedilol 12.5 mg PO BID 11/24/17 [History] DiphenhydraMINE [Benadryl] 25 mg PO HS 11/24/17 [History] Fluticasone/Salmeterol [Advair 250-50 Diskus] 1 puff IH BID 11/24/17 [History] Furosemide [Lasix] 20 mg PO DAILY 11/24/17 [History] LORazepam [Ativan] 0.5 mg PO BID PRN 11/24/17 [History] Lisinopril [Zestril] 20 mg PO DAILY 11/24/17 [History] Cefdinir [Omnicef] 300 mg PO BID 03/20/18 [History] Allergy/AdvReac Type Severity Reaction Status Date / Time morphine Allergy Rash Verified 11/24/17 20:22 prednisone AdvReac See Verified 03/20/18 08:18 Comments All Systems PM: review of systems was performed and is negative for pertinent findings except as documented above in the HPI. - Constitutional Vitals: Temp Pulse Resp BP Pulse Ox 98 F 100 18 164/68 100 03/20/18 07:35 03/20/18 07:35 03/20/18 08:41 03/20/18 07:35 03/20/18 08:41 Exam: General: Patient is alert, oriented, mild distress distress, these, speaks in 5 word sentences Head: atraumatic, normocephalic, Eye: normal appearance, PERRL, no scleral icterus, no conjunctival injection ENT: mucous membranes moist, normal external ear exam Neck: normal inspection, trachea midline, full ROM, no carotid bruits Chest: normal inspection, symmetric chest rise Respiratory: Diffuse wheezing in the posterior lung tariq, decreased breath sounds in the right posterior lung field as compared to the left with occasional crackles, using accessory abdominal muscles Cardiovascular: Tachycardic, s1 and s2 No clicks, rubs, gallops, or murmors. Abdomen: Bowel sounds present normoactive x-4 quadrants. Abdomen is soft, nondistended. no Epigastric tenderness. No guarding or rebound. No organomegaly noted, obese musculoskeletal: Spontaneously moving all extremities. no edema, no calf tenderness Skin: warm, dry, intact. Neuro: Alert and oriented x4. Sensation light touch intact. Cranial nerves 2- 12 is intact. No focal deficit Psych: Patient's affect is anxious Internal Med - H&P Results - Labs CBC & Chem 7: 03/20/18 02:19 03/20/18 02:19 Labs: Short CBC 03/20/18 Range/Units 02:19 WBC 10.1 (4.3-11.1) K/mcL Hgb 14.9 (11.5-15.4) g/dL Hct 45.4 H (35.3-44.9) % Plt Count 192 (140-400) K/mcL BMP 03/20/18 02:19 Sodium 135 L Potassium 4.2 Chloride 96 L Carbon Dioxide 32 H BUN 8 Creatinine 0.58 L Glucose 140 H Calcium 9.6 Cardiac Enzymes 03/20/18 03/20/18 Range/Units 02:19 08:21 Troponin I 0.05 H* 0.07 H* (< 0.04) ng/mL - EKG Data -: EKG Interpreted by Myself (atrial sensed ventricular paced complexes ) - Impressions ITS Impressions Chest X-Ray 03/20/18 01:56 IMPRESSION: Middle lobe atelectasis or pneumonia. D/ / Galileo Hunter MD / Galileo Hunter MD Interpreting Provider: Galileo Hunter MD - Assessment and plan (1) Pneumonia Current Visit: Yes Status: Acute Assessment and plan: Right middle lobe pneumonia Started on IV Levaquin in the emergency department we will continue Follow urine antigens Sputum cultures Respiratory viral panel Oxygen via nasal cannula keep sats greater than [address] chest if symptoms do not improve CXR: IMPRESSION: Middle lobe atelectasis or pneumonia. Qualifiers: Pneumonia type: due to unspecified organism Laterality: right Lung location: middle lobe of lung Qualified Code(s): J18.1 - Lobar pneumonia, unspecified organism (2) Acute exacerbation of chronic obstructive airways disease Current Visit: No Status: Acute Assessment and plan: Secondary to above Antibiotics as per above ABG stat Solu-Medrol 125 mg once and continue with 40 mg every 8 hours DuoNeb's every 4 hours Continue with home inhalers BiPAP when necessary for respiratory distress Low threshold for intubation Follow urine antigens, respiratory viral panel, and sputum cultures (3) Acute and chronic respiratory failure with hypoxia Current Visit: Yes Status: Acute Assessment and plan: Secondary to above Management as per above (4) Elevated troponin Current Visit: Yes Status: Acute Assessment and plan: Troponin mildly elevated 0.05 to 0.07- chest pain-free since admission Most likely secondary to demand versus supply mismatch from tachycardia cannot rule out underlying CAD Doubt PEWells criteria 1.5 Continue cardiac monitoring Continue home medications if not contraindicated Lipid panels in the morning Consider cardiology consult TTE: 11/2017-Impressions: LVEF 55-60%. Normal LV chamber size, wall thickness and function. Mild left ventricular diastolic dysfunction. Atypical septal motion consistent with paced rhythm. Normal right ventricular structure and function. Borderline mild pulmonary hypertension. No significant valvular dysfunction. (5) (HFpEF) heart failure with preserved ejection fraction Current Visit: Yes Status: Acute Assessment and plan: Currently not in acute exacerbation We will continue home medications if not contraindicated Intake and output BNP 14 TTE November 2017 Impressions: LVEF 55-60%. Normal LV chamber size, wall thickness and function. Mild left ventricular diastolic dysfunction. Atypical septal motion consistent with paced rhythm. Normal right ventricular structure and function. Borderline mild pulmonary hypertension. No significant valvular dysfunction. (6) DVT prophylaxis Current Visit: No Status: Acute Assessment and plan: Heparin subcutaneous (7) Obesity (BMI 30.0-34.9) Current Visit: Yes Status: Acute Assessment and plan: BMI 30.7 Nutrition consult - Time Spent With Patient Total time spent is greater than 50% in coordination of care (as documented) at patient's floor/unit and/or counseling patient:
[2018-03-20 09:13] LABS: ABG Base Excess 7 mEq/L (-2 to 3); ABG HCO3 37 mEq/L (21-27); ABG Oxygen Saturation 100 % (95-98); ABG PCO2 71 mmHg (35-45); ABG PH 7.32 pH Units (7.32-7.45); ABG PO2 185 mmHg (85-104); ABG TCO2 39 mEq/L (20-26)
[2018-03-20] MEDS ORDERED: Budesonide/Formoterol 80/4.5 MDI IH SCH (10:00)
[2018-03-20] MEDS: Aspirin Enteric Coated 81 MG Tablet PO SCH (10:01)
[2018-03-20] MEDS: Lisinopril 20 MG TABLET PO SCH (10:01)
[2018-03-20] MEDS: Furosemide 20 MG TABLET PO SCH (10:01)
[2018-03-20 11:56] LABS: ABG Base Excess 8 mEq/L (-2 to 3); ABG HCO3 38 mEq/L (21-27); ABG Oxygen Saturation 97 % (95-98); ABG PCO2 77 mmHg (35-45); ABG PO2 105 mmHg (85-104); ABG TCO2 40 mEq/L (20-26)
--- NOTE | 2018-03-20 12:30 | Pulmonology Consult Note ---
Date of Encounter: 03/20/18 Time of Encounter: 12:29 Assessment and Plan (1) Acute on chronic respiratory failure with hypoxia and hypercapnia Current Visit: Yes Status: Acute This is secondary to COPD exacerbation and possibly pneumonia. Excellent oxygenation There is impairment in gas exchange however with resultant hypercapnia which is modestly increased from baseline CO2 retention. I do not feel that the patient is not an imminent risk of further decline requiring intubation Any supplemental oxygen through BiPAP to keep saturation greater than 88% On BiPAP settings are 18/8 and I did not try to decrease that while was in the room with the patient and that appears that her air hunger is being satiated at this point with the higher pressures so it is reasonable to continue ABG is reassuring would repeat VBG in 4-6 hours Keep nothing by mouth at present and Continue noninvasive ventilation through the course of the afternoon patient feeling better by dinner then she this could be removed and she could eat with the rest off noninvasive ventilation for several hours if she is able to tolerate that then she could resume BiPAP on an as-needed basis if however she continues to have for difficulty with breathing or worsening respiratory status patient should be nothing by mouth while on BiPAP to the course of the day (2) Pneumonia Current Visit: Yes Status: Acute There is questionable right middle lobe infiltrate no evidence of leukocytosis or fever Recommend obtaining urine Legionella and strep pneumo antigens Send respiratory infection panel Click sputum culture and blood culture Agree with treatment for community-acquired organisms currently she is on Levaqu in MRSA nasal screen Treatment will be dependent upon clinical response generally 5-8 days for treat ment is sufficient Qualifiers: Pneumonia type: due to unspecified organism Laterality: right Lung location: middle lobe of lung Qualified Code(s): J18.1 - Lobar pneumonia, unspecified organism (3) Acute exacerbation of chronic obstructive airways disease Current Visit: No Status: Acute Schedule duo nebs every 4 hours with every 2 hour albuterol Agree with IV glucocorticoids today can likely transition to by mouth glucocorticoids to complete a two-week taper in the next 24-48 hours Symbicort dosing to 2 puffs 160/4.5 BID daily Tobacco abuse in remission Outpatient pulmonary follow-up for optimization given high-risk features of multiple hospitalizations for exacerbations this year (4) Elevated troponin Current Visit: Yes Status: Acute Modest elevation in troponin and she denies chest pain at present. Would trend troponin at this time consider repeating echocardiogram she is at risk for coronary artery disease but I suspect this is more related to demand ischemia consider cardiology consultation based upon troponin results Recommend DVT prophylaxis (chemical) unless contraindication arises Thank You for the consultation pulmonary will continue to follow History of Present Illness Consult date: 03/20/18 Requesting physician: Brii José Reason for consult: COPD Chief complaint: Difficulty in Breathing History of present illness: This is a pleasant 72-year-old woman with a past medical history of COPD complicated by chronic respiratory failure using 2 L of oxygen at all times she also has a history of CHF status post AICD placement in the past. She presented for shortness of breath for 48 hours prior to admission to the hospital complicated by cough with productive green phlegm increased shortness of breath and wheezing. Was seen by her PCP and was started on a course of oral cephalosporin without improvement she is also given some steroids but she did not take it because she says it makes her feel flushed. Was admitted to the hospital from the ED found to have possible right middle lobe pneumonia placed on Levaquin was also given breathing treatments and IV glucocorticoids ABG was performed because of respiratory distress and was notable for acute on chronic hypoxic hypercapnic respiratory failure was a mildly elevated CO2 from baseline she is currently on BiPAP. When I spoke with her she says she is relatively comfortable and appreciates the positive airway pressure thinks it is helping her breathe better. She is a former smoker of about 50 years but quit in 2005. She keeps 2 dogs at home but no exotic pets. Unfortunately she has had one othe r admission to the hospital within the last 6 months for respiratory failure and COPD exacerbation. 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 Past Med Surg Social Fam HX - Past Medical History Medical history: CHF, COPD, hypertension Psychiatric history: anxiety - Past Surgical History Surgical History: pacemaker/AICD - Social History Smoking Status: Former smoker Alcohol use: none Drug use: none - Family History Brother History Unknown: Yes Hx Family Cardiac Disorders: Yes (afib) Daughter History Unknown: Yes Hx Family Cardiac Disorders: Yes (tachycardia) Medications and Allergies Albuterol Neb [Proventil Neb] 3 ml IH TID 11/24/17 [History] Albuterol Sulfate [Ventolin Hfa] 2 puff IH Q4H 11/24/17 [History] Aspirin [Adult Aspirin] 81 mg PO DAILY 11/24/17 [History] Carvedilol 12.5 mg PO BID 11/24/17 [History] DiphenhydraMINE [Benadryl] 25 mg PO HS 11/24/17 [History] Fluticasone/Salmeterol [Advair 250-50 Diskus] 1 puff IH BID 11/24/17 [History] Furosemide [Lasix] 20 mg PO DAILY 11/24/17 [History] LORazepam [Ativan] 0.5 mg PO BID PRN 11/24/17 [History] Lisinopril [Zestril] 20 mg PO DAILY 11/24/17 [History] Cefdinir [Omnicef] 300 mg PO BID 03/20/18 [History] Allergy/AdvReac Type Severity Reaction Status Date / Time morphine Allergy Rash Verified 11/24/17 20:22 prednisone AdvReac See Verified 03/20/18 08:18 Comments All Systems: The remainder of the systems were reviewed and are negative Physical Examination Vital Signs: Vital Signs, Last 4 Hours Temp Pulse Resp BP Pulse Ox 03/20/18 12:25 24 97 03/20/18 11:04 97.8 F 86 18 136/63 98 03/20/18 10:20 99 03/20/18 09:12 27 99 03/20/18 08:41 18 100 General appearance: no acute distress Eyes: nonicteric Neck: supple, no lymphadenopathy Effort: mildly labored Auscultation: bilateral: diminished breath sounds, wheezes (expiratory wheezes. ) Cardiovascular: other (Rapid rate regular rhythm) Gastrointestinal: normoactive bowel sounds, soft, non-tender Integumentary: normal Extremities: no cyanosis, no edema, no clubbing Musculoskeletal: no deformities normal mental status, non-focal exam, pupils equal and round mood appropriate Results - Laboratory Findings CBC and BMP: 03/20/18 02:19 03/20/18 02:19 ABG ABG pH 7.30 pH Units (7.32-7.45) L 03/20/18 11:52 ABG pCO2 77 mmHg (35-45) H* 03/20/18 11:52 ABG pO2 105 mmHg (85-104) H D 03/20/18 11:52 ABG O2 Saturation 97 % (95-98) 03/20/18 11:52 Abnormal lab findings: Abnormal lab results RBC 4.99 M/mcL (3.82-4.97) H 03/20/18 02:19 Hct 45.4 % (35.3-44.9) H 03/20/18 02:19 ABG pH 7.30 pH Units (7.32-7.45) L 03/20/18 11:52 ABG pCO2 77 mmHg (35-45) H* 03/20/18 11:52 ABG pO2 105 mmHg (85-104) H D 03/20/18 11:52 ABG HCO3 38 mEq/L (21-27) H 03/20/18 11:52 ABG Total CO2 40 mEq/L (20-26) H 03/20/18 11:52 ABG Base Excess 8 mEq/L (-2 to 3) H 03/20/18 11:52 Sodium 135 mEq/L (136-145) L 03/20/18 02:19 Chloride 96 mEq/L (98-107) L 03/20/18 02:19 Carbon Dioxide 32 mEq/L (23-29) H 03/20/18 02:19 Creatinine 0.58 mg/dL (0.60-1.20) L 03/20/18 02:19 Glucose 140 mg/dL (70-105) H 03/20/18 02:19 Troponin I 0.07 ng/mL (< 0.04) H* 03/20/18 08:21 TSH 0.312 mcIU/mL (0.340-5.600) L 03/20/18 10:03 - Microbiology Findings Microbiology Findings: Microbiology, Last 48 Hours 03/20/18 10:03 Blood Culture - Preliminary Peripheral Venipuncture Culture is incubating and being continuously monitored for growth. Final report to follow. - Diagnostic Findings Chest x-ray: report reviewed, image reviewed - Clinical Findings Intake & Output: Intake & Output 03/19/18 03/20/18 03/20/18 23:59 07:59 15:59 Intake Total 150 / 150 Balance 150 / 150 Weight 86.183 kg Consult Discharge Plan - Plan Referrals: Nash Ren MD [Primary Care Provider] -
[2018-03-20] MEDS ORDERED: Albuterol 2.5 MG/3 ML NEBULIZER IH PRN (12:40)
[2018-03-20] MEDS: *HR* Heparin 5,000 UNIT/ML VIAL SQ SCH ×2 (13:10→21:26)
[2018-03-20] MEDS: *HR* LORazepam 0.5 MG TABLET PO PRN (13:40)
[2018-03-20] MEDS: MethylPREDNISolone 40 MG/ML VIAL IVP SCH ×2 (16:46→23:16)
--- NOTE | 2018-03-20 19:56 | Electrocardiograph Report ---
[place] [id number] Test Date: 2018-03-20 Pat Name: Rossy Corrales Department: [id number] Room: [facility] ([facility] Gender: F Chicken Sexer: : 1945 Requested By: Carlos Daly Order Number: [id number] Reading MD: Ian De Guzman Measurements Intervals [place] Rate: 105 P: 73 KS: 74 QRS: 221 QRSD: 137 T: 20 QT: 411 QTc: 544 Interpretive Statements ARTIFACT VENTRICULAR PACED RHYTHM Electronically Signed On 03-20-2018 19:54:42 EDT by Ian De Guzman
[2018-03-20] MEDS: Budesonide/Formoterol 160/4.5 1 PUFF INH IH SCH (23:09)
[2018-03-21] MEDS: Ipratropium/Albuterol Neb 3 ML IH SCH ×6 (04:27→23:42)
[2018-03-21 04:39] LABS: Basophils % 0.1 %; Hematocrit 43.1 % (35.3-44.9); Hemoglobin 14.2 g/dL (11.5-15.4); Lymphocytes # 0.7 K/mcL (0.6-4.6); Lymphocytes % 8.8 %; Mean Corpuscular HGB Conc 32.9 g/dL (31.6-35.5); Mean Corpuscular Hemoglobin 30.5 pg (28.0-33.3); Mean Corpuscular Volume 92.7 fL (83.0-100.0); Mean Platelet Volume 9.6 fL (9.4-12.4); Monocytes # 0.3 K/mcL (0.0-1.3); Neutrophils # 6.7 K/mcL (1.6-8.9); Platelet Count 194 K/mcL (140-400); Red Blood Count 4.65 M/mcL (3.82-4.97); Segmented Neutrophils % 86.1 %
[2018-03-21 04:54] LABS: Prothrombin Time 11.7 Seconds (9.4-12.1)
[2018-03-21 05:01] LABS: BUN/Creatinine Ratio 23 (6-26); Blood Urea Nitrogen 18 mg/dL (8-23); Calcium 9.7 mg/dL (8.6-10.3); Carbon Dioxide 33 mEq/L (23-29); Chloride 94 mEq/L (98-107); Chol/HDL Ratio 3.1 (0-4.9); Cholesterol 165 mg/dL (< 200); Glucose 162 mg/dL (70-105); HDL Cholesterol 54 mg/dL (40-59); LDL Cholesterol,Calculated 97 mg/dL (0-99); Osmolality,Calculated 287 (280-300); Potassium 4.7 mEq/L (3.5-5.1); Sodium 136 mEq/L (136-145); Triglycerides 71 mg/dL (< 150); eGFR For Non-African Americans > 60 (> 60)
[2018-03-21 05:02] LABS: Albumin 4.3 g/dL (3.5-5.7); Albumin/Globulin Ratio 1.7 (1.1-2.2); Bilirubin,Direct 0.1 mg/dL (0.0-0.2); Bilirubin,Indirect 0.3 mg/dL (0.0-1.2); Bilirubin,Total 0.4 mg/dL (0.3-1.0); Globulin 2.5 g/dL (2.4-3.5); Total Protein 6.8 g/dL (6.4-8.9)
[2018-03-21] MEDS: *HR* Heparin 5,000 UNIT/ML VIAL SQ SCH ×3 (05:49→21:12)
--- NOTE | 2018-03-21 06:52 | Pulmonology Progress Note ---
Date of Encounter: 03/21/18 Time of Encounter: 06:51 Assessment and Plan (1) Acute on chronic respiratory failure with hypoxia and hypercapnia Current Visit: Yes Status: Acute Wean FiO2 to keep saturation greater than 88% at all times BiPAP as needed for work of breathing my opinion she does not need this for respiratory failure Would encourage the patient out of bed to chair and use incentive spirometer when she is not on BiPAP (2) Pneumonia Current Visit: Yes Status: Acute Causative organism at this point remains unclear but likely need 7-8 days of antimicrobials to treat for pneumonia pending cultures and clinical course I do recommend that to respiratory infection panel be sent if this turns out to be viral infection safely discontinue antibiotics or possibly switch to something like azithromycin for COPD exacerbation Qualifiers: Pneumonia type: due to unspecified organism Laterality: right Lung location: middle lobe of lung Qualified Code(s): J18.1 - Lobar pneumonia, unspecified organism (3) Acute exacerbation of chronic obstructive airways disease Current Visit: No Status: Acute Would continue IV glucocorticoids today with plan to transition to Medrol Dosepak over the next 24 hours (orally) Continue with schedule bronchodilators and Symbicort She will need outpatient pulmonary follow-up as she has high risk features of recurrent COPD exacerbations this year (4) Elevated troponin Current Visit: Yes Status: Acute Management per primary hospitalist service troponins adynamic Pulmonary will sign off please call with any questions we look forward to seeing the patient in the pulmonary clinic for further evaluation Subjective Principal diagnosis: AECOPD Interval history: Ms. Corrales continues to improve. She states that her breathing is much better than yesterday but she still finds the BiPAP to help with her work of breathing. She has had a cough and send a sputum culture but it was not acceptable and I encouraged her to try to produce another one if possible. She remains afebrile otherwise hemodynamically stable saturating excellent on 40% FiO2 to bleed through BiPAP Objective PUL Vital signs: Last Vital Signs Temp 98.0 F 03/21/18 03:00 Pulse 71 03/21/18 03:00 Resp 24 03/21/18 04:28 BP 102/63 03/21/18 03:00 Pulse Ox 97 03/21/18 04:28 General appearance: no acute distress Eyes: nonicteric Neck: supple Effort: normal Auscultation: bilateral: diminished breath sounds, wheezes Cardiovascular: regular rate and rhythm Gastrointestinal: normoactive bowel sounds, non-tender Integumentary: normal Extremities: no cyanosis, no edema, no clubbing, pink and warm Musculoskeletal: no deformities normal mental status, non-focal exam mood appropriate Results - Laboratory Findings CBC and BMP: 03/21/18 04:20 03/21/18 04:20 ABG ABG pH 7.30 pH Units (7.32-7.45) L 03/20/18 11:52 ABG pCO2 77 mmHg (35-45) H* 03/20/18 11:52 ABG pO2 105 mmHg (85-104) H D 03/20/18 11:52 ABG O2 Saturation 97 % (95-98) 03/20/18 11:52 PT/INR, D-dimer PT 11.7 Seconds (9.4-12.1) 03/21/18 04:20 Abnormal lab findings: Abnormal lab results ABG pH 7.30 pH Units (7.32-7.45) L 03/20/18 11:52 ABG pCO2 77 mmHg (35-45) H* 03/20/18 11:52 ABG pO2 105 mmHg (85-104) H D 03/20/18 11:52 ABG HCO3 38 mEq/L (21-27) H 03/20/18 11:52 ABG Total CO2 40 mEq/L (20-26) H 03/20/18 11:52 ABG Base Excess 8 mEq/L (-2 to 3) H 03/20/18 11:52 Chloride 94 mEq/L (98-107) L 03/21/18 04:20 Carbon Dioxide 33 mEq/L (23-29) H 03/21/18 04:20 Glucose 162 mg/dL (70-105) H 03/21/18 04:20 Troponin I 0.05 ng/mL (< 0.04) H* 03/20/18 15:45 TSH 0.312 mcIU/mL (0.340-5.600) L 03/20/18 10:03 - Microbiology Findings Microbiology Findings: Microbiology, Last 48 Hours 03/20/18 10:17 Sputum Culture - Final Sputum 03/20/18 10:03 Blood Culture - Preliminary Peripheral Venipuncture Culture is incubating and being continuously monitored for growth. Final report to follow. - Clinical Findings Intake & Output: Intake & Output 03/20/18 03/20/18 03/21/18 15:59 23:59 07:59 Intake Total 150 / 150 Output Total 350 / 350 Balance 150 / 150 -350 / -350 Weight 88.1 kg Consult Discharge Plan - Plan Referrals: Nash Ren MD [Primary Care Provider] -
[2018-03-21] MEDS: MethylPREDNISolone 40 MG/ML VIAL IVP SCH ×2 (07:59→16:26)
[2018-03-21] MEDS: Aspirin Enteric Coated 81 MG Tablet PO SCH (07:59)
[2018-03-21] MEDS: Lisinopril 20 MG TABLET PO SCH (07:59)
[2018-03-21] MEDS: Furosemide 20 MG TABLET PO SCH (07:59)
[2018-03-21] MEDS: Budesonide/Formoterol 160/4.5 1 PUFF INH IH SCH ×2 (08:20→19:38)
[2018-03-21 08:22] LABS: Adenovirus Not Detected (Not Detect); Bordetella Pertussis Not Detected (Not Detect); Chlamydophila pneumoniae Not Detected (Not Detect); Coronavirus 229E Not Detected (Not Detect); Coronavirus HKU1 Not Detected (Not Detect); Coronavirus NL63 Not Detected (Not Detect); Coronavirus OC43 Not Detected (Not Detect); Human Metapneumovirus Not Detected (Not Detect); Human Rhinovirus/Enterovirus Not Detected (Not Detect); Influenza A Subtype 2009 H1 Not Detected (Not Detect); Influenza A Untypeable Not Detected (Not Detect); Influenza B Not Detected (Not Detect); Mycoplasma pneumoniae Not Detected (Not Detect); Parainfluenza Virus 1 Not Detected (Not Detect); Parainfluenza Virus 2 Not Detected (Not Detect); Parainfluenza Virus 3 Not Detected (Not Detect); Parainfluenza Virus 4 Not Detected (Not Detect); Respiratory Syncytial Virus DETECTED (Not Detect)
[2018-03-21] MEDS ORDERED: Levofloxacin 750 MG/150 ML 750 MG/150 ML BAG IVPB SCH (09:00)
--- NOTE | 2018-03-21 11:34 | Internal Med Progress Note ---
Hospitalist Progress Note - Encounter Date of Encounter: 03/21/18 Time of Encounter: 11:32 - Subjective Interval History: Ms. Corrales is a 72 year old female with history of COPD on home oxygen presented to the emergency department with complaint of shortness of breath. As per patient her symptoms began 48 hours prior to admission and progressively worsen ed to the point that she could not catch her breath so she decided to come to the emergency department for further evaluation. Seen and examined at bedside today. Continues to report shortness of breath. She is currently resting comfortably on a BiPAP. - Exam Vitals: Temp Pulse Resp BP Pulse Ox 97.6 F 73 16 112/71 99 03/21/18 11:30 03/21/18 11:30 03/21/18 11:30 03/21/18 11:30 03/21/18 11:30 Exam: General: Patient is alert, oriented, mild distress distress, these, speaks in 5 word sentences Head: atraumatic, normocephalic, Eye: normal appearance, PERRL, no scleral icterus, no conjunctival injection ENT: mucous membranes moist, normal external ear exam Neck: normal inspection, trachea midline, full ROM, no carotid bruits Chest: normal inspection, symmetric chest rise Respiratory: Diffuse wheezing in the posterior lung tariq, decreased breath sounds in the right posterior lung field as compared to the left with occasional crackles. Without accessory muscle usage, mild conversational dyspnea persists Cardiovascular: Tachycardic, s1 and s2 No clicks, rubs, gallops, or murmors. Abdomen: Bowel sounds present normoactive x-4 quadrants. Abdomen is soft, nondistended. no Epigastric tenderness. No guarding or rebound. No organomegaly noted, obese musculoskeletal: Spontaneously moving all extremities. no edema, no calf tenderness Skin: warm, dry, intact. Neuro: Alert and oriented x4. Sensation light touch intact. Cranial nerves 2- 12 is intact. No focal deficit Psych: Patient's affect is anxious - Assessment and Plan (1) Pneumonia Current Visit: Yes Status: Acute Assessment and Plan: Right middle lobe pneumonia Causative organism likely viral, RIP positive for RSV Strep pneumo antigen, Legionella antigen pending We will change ABX to azithromycin for anti-inflammatory properties; recommended per pulmonology Sputum cultures pending Blood cultures pending Oxygen via nasal cannula keep sats greater than 88% per recommendations of pulmonology, wean as tolerated Currently on BiPAP however likely does not need at this time; continue BiPAP when necessary Encourage patient to use nasal cannula, encourage incentive spirometry use Consider CT chest if symptoms do not improve Remains afebrile and hemodynamically stable and without leukocytosis Continue duo nebs, continue steroids Consider changing to oral steroids tomorrow if patient's condition continues to improve She will need pulmonology follow-up upon discharge (2) Acute exacerbation of chronic obstructive airways disease Current Visit: No Status: Acute Assessment and Plan: As above (3) Elevated troponin Current Visit: Yes Status: Acute Assessment and Plan: Troponin mildly elevated 0.05 to 0.07, 0.05- chest pain-free since admission; Most likely 2/2 demand ischemia in the setting of suspected viral pneumonia and COPD exacerbation With concern for PEWells criteria 1.5 Continue cardiac monitoring Continue cardiac medications (4) (HFpEF) heart failure with preserved ejection fraction Current Visit: Yes Status: Acute Assessment and Plan: Currently not in acute exacerbation We will continue home medications if not contraindicated Strict Intake and output that negative fluid volume -220 mL Daily weight stable TTE November 2017 Impressions: LVEF 55-60%. Normal LV chamber size, wall thickness and function. Mild left ventricular diastolic dysfunction. Atypical septal motion consistent with paced rhythm. Normal right ventricular structure and function. Borderline mild pulmonary hypertension. No significant valvular dysfunction. (5) Acute and chronic respiratory failure with hypoxia Current Visit: Yes Status: Acute Assessment and Plan: As above. (6) Obesity (BMI 30.0-34.9) Current Visit: Yes Status: Acute Assessment and Plan: BMI 30.7 Nutrition consult We will discuss lifestyle modification DVT Prophylaxis: SC heparin - Time Spent with Patient Total time spent is greater than 50% in coordination of care (as documented) at patient's floor/unit and/or counseling patient: less than 15 minutes Plan of Care Discussed with: patient Internal Medicine: Result - Labs CBC & Chem 7: 03/21/18 04:20 03/21/18 04:20 Labs: Short CBC 03/21/18 Range/Units 04:20 WBC 7.8 (4.3-11.1) K/mcL Hgb 14.2 (11.5-15.4) g/dL Hct 43.1 (35.3-44.9) % Plt Count 194 (140-400) K/mcL Neutrophils # 6.7 (1.6-8.9) K/mcL BMP 03/21/18 04:20 Sodium 136 Potassium 4.7 Chloride 94 L Carbon Dioxide 33 H BUN 18 Creatinine 0.78 Glucose 162 H Calcium 9.7 Cardiac Enzymes 03/20/18 Range/Units 15:45 Troponin I 0.05 H* (< 0.04) ng/mL Liver Function 03/21/18 Range/Units 04:20 Total Bilirubin 0.4 (0.3-1.0) mg/dL Direct Bilirubin 0.1 (0.0-0.2) mg/dL AST 18 (13-39) Units/L ALT 16 (7-52) Units/L Alkaline Phosphatase 73 (34-104) Units/L Albumin 4.3 (3.5-5.7) g/dL - ABG Interpretation ABG results: ABG ABG pH 7.30 pH Units (7.32-7.45) L 03/20/18 11:52 ABG pCO2 77 mmHg (35-45) H* 03/20/18 11:52 ABG pO2 105 mmHg (85-104) H D 03/20/18 11:52 ABG O2 Saturation 97 % (95-98) 03/20/18 11:52 PT/INR, D-dimer PT 11.7 Seconds (9.4-12.1) 03/21/18 04:20 Consult Discharge Plan - Plan Referrals: Nash Ren MD [Primary Care Provider] - (1) Pneumonia Qualifiers: Pneumonia type: due to unspecified organism Laterality: right Lung location: middle lobe of lung Qualified Code(s): J18.1 - Lobar pneumonia, unspecified organism
[2018-03-21] MEDS: Azithromycin 500 MG in D5% in Water 250 ML IVPB SCH (13:00)
[2018-03-21 13:12] LABS: Bilirubin,Urine Negative (Negative); Blood,Urine Negative (Negative); Clarity,Urine Clear (Clear); Color,Urine Yellow (Yellow); Glucose,Urine (UA) Normal (Normal); Ketones,Urine Negative (Negative); Leukocyte Esterase,Urine Negative (Negative); Nitrite,Urine Negative (Negative); PH,Urine 5.5 pH Units (5.0-8.0); Protein,Urine Trace mg/dL (Neg-Trace); Specific Gravity,Urine 1.012 (1.010-1.025); Urobilinogen,Urine Normal (Normal)
[2018-03-21 13:14] LABS: Bacteria,Urine None Seen per hpf (None-Few); Hyaline Casts,Urine Few per lpf (None-Few); RBC,Urine 0-3 per hpf (0-3); Squamous Epithelial Cell,Urine Many per lpf (None-Few)
[2018-03-21 13:21] LABS: Amphetamine Screen,Urine Negative ng/mL (Cutoff=1000); Barbiturate Screen,Urine Negative ng/mL (Cutoff=200); Benzodiazepines Screen,Urine Negative ng/mL (Cutoff=200); Cannabinoid Screen,Urine Negative ng/mL (Cutoff = 50); Cocaine Screen,Urine Negative ng/mL (Cutoff= 300); Opiate Screen,Urine Negative ng/mL (Cutoff=300); Phencyclidine Screen,Urine Negative ng/mL (Cutoff=25)
[2018-03-22] MEDS: Ipratropium/Albuterol Neb 3 ML IH SCH ×6 (04:12→23:43)
[2018-03-22 05:22] LABS: Basophils % 0.1 %; Hematocrit 40.7 % (35.3-44.9); Hemoglobin 13.3 g/dL (11.5-15.4); Immature Granulocytes % 0.6 % (0-4); Lymphocytes # 0.8 K/mcL (0.6-4.6); Lymphocytes % 5.8 %; Mean Corpuscular HGB Conc 32.7 g/dL (31.6-35.5); Mean Corpuscular Hemoglobin 30.3 pg (28.0-33.3); Mean Corpuscular Volume 92.7 fL (83.0-100.0); Monocytes # 0.7 K/mcL (0.0-1.3); Platelet Count 205 K/mcL (140-400); Red Blood Count 4.39 M/mcL (3.82-4.97); Segmented Neutrophils % 88.5 %
[2018-03-22 05:24] LABS: Neutrophils # 12.7 K/mcL (1.6-8.9)
[2018-03-22 05:42] LABS: BUN/Creatinine Ratio 45 (6-26); Blood Urea Nitrogen 39 mg/dL (8-23); Calcium 9.6 mg/dL (8.6-10.3); Carbon Dioxide 38 mEq/L (23-29); Chloride 95 mEq/L (98-107); Glucose 142 mg/dL (70-105); Osmolality,Calculated 294 (280-300); Potassium 4.7 mEq/L (3.5-5.1); Sodium 136 mEq/L (136-145); eGFR For Non-African Americans > 60 (> 60)
[2018-03-22] MEDS: *HR* Heparin 5,000 UNIT/ML VIAL SQ SCH ×3 (05:54→21:39)
[2018-03-22] MEDS: Furosemide 20 MG TABLET PO SCH (07:55)
[2018-03-22] MEDS: Lisinopril 20 MG TABLET PO SCH (07:55)
[2018-03-22] MEDS: MethylPREDNISolone 40 MG/ML VIAL IVP SCH ×3 (07:55→16:54)
[2018-03-22] MEDS: Aspirin Enteric Coated 81 MG Tablet PO SCH (07:55)
[2018-03-22] MEDS: Budesonide/Formoterol 160/4.5 1 PUFF INH IH SCH ×2 (08:23→20:22)
--- NOTE | 2018-03-22 08:57 | Internal Med Progress Note ---
Hospitalist Progress Note - Encounter Date of Encounter: 03/22/18 Time of Encounter: 09:48 - Subjective Interval History: Ms. Corrales is a 72 year old female with history of COPD on home oxygen who presented to the ED with complaints of shortness of breath. As per patient her symptoms began 48 hours prior to admission and have been getting progressively w orse to the point that she could not catch her breath so she decided to come to the emergency department for further evaluation. She was diagnosed with viral PNA. I have seen and examined at bedside today. She continues to report shortness of breath both at rest and with exertion. She is currently resting on oxy-mask at bedside. She continues to report dyspnea with conversation, cough, weakness, fatigue. She states that she feels that she would be back in the ED tonight if she were to d/c in her current state. - Exam Vitals: Temp Pulse Resp BP Pulse Ox 98.1 F 77 20 103/58 99 03/22/18 06:59 03/22/18 06:59 03/22/18 08:24 03/22/18 06:59 03/22/18 08:24 Exam: General: Patient is alert, oriented, mild respiratory distress Head: atraumatic, normocephalic, Eye: normal appearance, PERRL, no scleral icterus, no conjunctival injection ENT: mucous membranes moist, normal external ear exam Neck: normal inspection, trachea midline, full ROM, no carotid bruits Chest: normal inspection, symmetric chest rise Respiratory: Diffuse wheezing in the posterior lung tariq persist, decreased breath sounds throughout. Continues to have conversational dyspnea Cardiovascular: Tachycardic, s1 and s2 No clicks, rubs, gallops, or murmors. Abdomen: Bowel sounds present normoactive x-4 quadrants. Abdomen is soft, n ondistended. no Epigastric tenderness. No guarding or rebound. No organomegaly noted, obese musculoskeletal: Spontaneously moving all extremities. no edema, no calf tenderness Skin: warm, dry, intact. Neuro: Alert and oriented x4. Sensation light touch intact. Cranial nerves 2- 12 is intact. No focal deficit Psych: Patient's affect is anxious - Assessment and Plan (1) Pneumonia Current Visit: Yes Status: Acute Assessment and Plan: Right middle lobe pneumonia Causative organism viral, RIP positive for RSV Strep pneumo antigen, Legionella antigen negative sputum cultures negative We will change ABX to azithromycin for anti-inflammatory properties; recommended per pulmonology Blood cultures NGTD Oxygen via nasal cannula keep sats greater than 88% per recommendations of pulmonology, wean as tolerated Currently on Oxy-mask, SPO2 >92% with mild respiratory distress and some conversational dyspnea; continue BiPAP when necessary Encourage patient to use nasal cannula, encourage incentive spirometry use Consider CT chest if symptoms do not improve Remains afebrile and hemodynamically stable. Leukocytosis today 14.3, but patient is on steroids Continue duo nebs, continue steroids; with persistent dyspnea I do not feel that the She will need pulmonology follow-up upon discharge (2) Acute exacerbation of chronic obstructive airways disease Current Visit: No Status: Acute Assessment and Plan: As above (3) Elevated troponin Current Visit: Yes Status: Acute Assessment and Plan: Troponin mildly elevated 0.05 to 0.07, 0.05- continues to be chest pain-free since admission; Most likely 2/2 demand ischemia in the setting of suspected viral pneumonia and COPD exacerbation Low concern for PEWells criteria 1.5 Continue cardiac monitoring Continue cardiac medications (4) (HFpEF) heart failure with preserved ejection fraction Current Visit: Yes Status: Acute Assessment and Plan: Currently not in acute exacerbation We will continue home medications if not contraindicated Strict Intake and output that negative fluid volume -350 mL Daily weight stable TTE November 2017 Impressions: LVEF 55-60%. Normal LV chamber size, wall thickness and function. Mild left ventricular diastolic dysfunction. Atypical septal motion consistent with paced rhythm. Normal right ventricular structure and function. Borderline mild pulmonary hypertension. No significant valvular dysfunction. (5) Acute and chronic respiratory failure with hypoxia Current Visit: Yes Status: Acute Assessment and Plan: Continue as above. (6) Obesity (BMI 30.0-34.9) Current Visit: Yes Status: Acute Assessment and Plan: BMI 30.7 Nutrition consult Continued to discuss lifestyle modifications DVT Prophylaxis: Continue SC heparin - Time Spent with Patient Total time spent is greater than 50% in coordination of care (as documented) at patient's floor/unit and/or counseling patient: less than 15 minutes Plan of Care Discussed with: patient Internal Medicine: Result - Labs CBC & Chem 7: 03/22/18 04:53 03/22/18 04:53 Labs: Short CBC 03/22/18 Range/Units 04:53 WBC 14.3 H D (4.3-11.1) K/mcL Hgb 13.3 (11.5-15.4) g/dL Hct 40.7 (35.3-44.9) % Plt Count 205 (140-400) K/mcL Neutrophils # 12.7 H (1.6-8.9) K/mcL BMP 03/22/18 04:53 Sodium 136 Potassium 4.7 Chloride 95 L Carbon Dioxide 38 H BUN 39 H Creatinine 0.86 Glucose 142 H Calcium 9.6 Urine 03/21/18 Range/Units 12:57 Urine Color Yellow (Yellow) Urine Clarity Clear (Clear) Urine pH 5.5 (5.0-8.0) pH Units Ur Specific [place] 1.012 (1.010-1.025) Urine Protein Trace (Neg-Trace) mg/dL Urine Glucose (UA) Normal (Normal) mg/dL - ABG Interpretation ABG results: ABG ABG pH 7.30 pH Units (7.32-7.45) L 03/20/18 11:52 ABG pCO2 77 mmHg (35-45) H* 03/20/18 11:52 ABG pO2 105 mmHg (85-104) H D 03/20/18 11:52 ABG O2 Saturation 97 % (95-98) 03/20/18 11:52 PT/INR, D-dimer PT 11.7 Seconds (9.4-12.1) 03/21/18 04:20 Consult Discharge Plan - Plan Referrals: Nash Ren MD [Primary Care Provider] - (1) Pneumonia Qualifiers: Pneumonia type: due to unspecified organism Laterality: right Lung location: middle lobe of lung Qualified Code(s): J18.1 - Lobar pneumonia, unspecified organism
[2018-03-22] MEDS: Azithromycin 500 MG in D5% in Water 250 ML IVPB SCH (11:40)
[2018-03-23] MEDS: MethylPREDNISolone 40 MG/ML VIAL IVP SCH ×2 (00:21→09:40)
[2018-03-23] MEDS: *HR* LORazepam 0.5 MG TABLET PO PRN (00:21)
[2018-03-23] MEDS: Ipratropium/Albuterol Neb 3 ML IH SCH ×5 (04:10→20:40)
[2018-03-23] MEDS: *HR* Heparin 5,000 UNIT/ML VIAL SQ SCH ×3 (05:40→20:55)
[2018-03-23 05:59] LABS: Basophils % 0.2 %; Hematocrit 38.8 % (35.3-44.9); Hemoglobin 12.5 g/dL (11.5-15.4); Immature Granulocytes % 0.7 % (0-4); Lymphocytes # 0.8 K/mcL (0.6-4.6); Lymphocytes % 7.3 %; Mean Corpuscular HGB Conc 32.2 g/dL (31.6-35.5); Mean Corpuscular Hemoglobin 29.9 pg (28.0-33.3); Mean Corpuscular Volume 92.8 fL (83.0-100.0); Mean Platelet Volume 9.9 fL (9.4-12.4); Monocytes # 0.5 K/mcL (0.0-1.3); Monocytes % 4.1 %; Neutrophils # 9.5 K/mcL (1.6-8.9); Platelet Count 190 K/mcL (140-400); Red Blood Count 4.18 M/mcL (3.82-4.97); Segmented Neutrophils % 87.7 %
[2018-03-23 06:14] LABS: BUN/Creatinine Ratio 57 (6-26); Blood Urea Nitrogen 44 mg/dL (8-23); Calcium 9.4 mg/dL (8.6-10.3); Carbon Dioxide 38 mEq/L (23-29); Chloride 96 mEq/L (98-107); Glucose 149 mg/dL (70-105); Osmolality,Calculated 296 (280-300); Potassium 4.9 mEq/L (3.5-5.1); Sodium 136 mEq/L (136-145); eGFR For Non-African Americans > 60 (> 60)
[2018-03-23] MEDS: Budesonide/Formoterol 160/4.5 1 PUFF INH IH SCH ×2 (08:05→20:40)
[2018-03-23] MEDS: Aspirin Enteric Coated 81 MG Tablet PO SCH (09:41)
[2018-03-23] MEDS: Lisinopril 20 MG TABLET PO SCH (09:41)
[2018-03-23] MEDS: Furosemide 20 MG TABLET PO SCH (09:41)
--- NOTE | 2018-03-23 11:30 | Internal Med Progress Note ---
Hospitalist Progress Note - Encounter Date of Encounter: 03/23/18 Time of Encounter: 11:24 - Subjective Interval History: Ms. Corrales is a 72 year old female with history of COPD on home oxygen who presented to the ED with complaints of shortness of breath. As per patient her symptoms began 48 hours prior to admission and have been getting progressively w orse to the point that she could not catch her breath so she decided to come to the emergency department for further evaluation. She was diagnosed with viral PNA. I have seen and examined at bedside today. Dysnpea improving; she continues to have a course non-productive cough. She is currently sitting at bedside eating breakfast. - Exam Vitals: Temp Pulse Resp BP Pulse Ox 97.5 F L 77 18 118/75 100 03/23/18 10:54 03/23/18 10:54 03/23/18 10:54 03/23/18 10:54 03/23/18 10:54 Exam: General: Patient is alert, oriented, mild respiratory distress Head: atraumatic, normocephalic, Eye: normal appearance, PERRL, no scleral icterus, no conjunctival injection ENT: mucous membranes moist, normal external ear exam Neck: normal inspection, trachea midline, full ROM, no carotid bruits Chest: normal inspection, symmetric chest rise Respiratory: Diffuse, fine wheezing in the posterior lung tariq persist, decreased breath sounds throughout. Continues to have conversational dyspnea Cardiovascular: RRR, s1 and s2 No clicks, rubs, gallops, or murmors. Abdomen: Bowel sounds present normoactive x-4 quadrants. Abdomen is soft, nondistended. no Epigastric tenderness. No guarding or rebound. No organomegaly noted, obese musculoskeletal: Spontaneously moving all extremities. no edema, no calf tenderness Skin: warm, dry, intact. Neuro: Alert and oriented x4. Sensation light touch intact. Cranial nerves 2- 12 is intact. No focal deficit Psych: Patient's affect is anxious - Assessment and Plan (1) Pneumonia Current Visit: Yes Status: Acute Assessment and Plan: Right middle lobe pneumonia Causative organism viral, RIP positive for RSV Strep pneumo antigen, Legionella antigen negative sputum cultures negative Continue azithromycin for anti-inflammatory properties Blood cultures remain NGTD Oxygen via nasal cannula keep sats greater than 88% per recommendations of pulmonology, wean as tolerated Continues to have some conversational dyspnea and dyspnea with exertion as well as productive cough; continue BiPAP when necessary Encourage patient to use nasal cannula, encourage incentive spirometry use CXR now Remains afebrile and hemodynamically stable WBC 10.9 Continue duo nebs, continue steroids; with persistent dyspnea I do not feel that the She will need pulmonology follow-up upon discharge (2) Acute exacerbation of chronic obstructive airways disease Current Visit: No Status: Acute Assessment and Plan: As above (3) Elevated troponin Current Visit: Yes Status: Acute Assessment and Plan: Troponin mildly elevated 0.05 to 0.07, 0.05- continues to be chest pain-free since admission Most likely 2/2 demand ischemia in the setting of suspected viral pneumonia and COPD exacerbation Low concern for PEWells criteria 1.5 Continue cardiac monitoring Continue cardiac medications (4) (HFpEF) heart failure with preserved ejection fraction Current Visit: Yes Status: Acute Assessment and Plan: Currently not in acute exacerbation Does not appear fluid overloaded We will continue home medications if not contraindicated Strict Intake and output that negative fluid volume +870 mL Daily weight stable TTE November 2017 Impressions: LVEF 55-60%. Normal LV chamber size, wall thickness and function. Mild left ventricular diastolic dysfunction. Atypical septal motion consistent with paced rhythm. Normal right ventricular structure and function. Borderline mild pulmonary hypertension. No significant valvular dysfunction. (5) Acute and chronic respiratory failure with hypoxia Current Visit: Yes Status: Acute Assessment and Plan: as above (6) Obesity (BMI 30.0-34.9) Current Visit: Yes Status: Acute Assessment and Plan: BMI 30.7 Nutrition consult Continued to discuss lifestyle modifications DVT Prophylaxis: Continue SC heparin - Time Spent with Patient Total time spent is greater than 50% in coordination of care (as documented) at patient's floor/unit and/or counseling patient: less than 15 minutes Internal Medicine: Result - Labs CBC & Chem 7: 03/23/18 05:15 03/23/18 05:15 Labs: Short CBC 03/23/18 Range/Units 05:15 WBC 10.9 (4.3-11.1) K/mcL Hgb 12.5 (11.5-15.4) g/dL Hct 38.8 (35.3-44.9) % Plt Count 190 (140-400) K/mcL Neutrophils # 9.5 H (1.6-8.9) K/mcL BMP 03/23/18 05:15 Sodium 136 Potassium 4.9 Chloride 96 L Carbon Dioxide 38 H BUN 44 H Creatinine 0.77 Glucose 149 H Calcium 9.4 - ABG Interpretation ABG results: ABG ABG pH 7.30 pH Units (7.32-7.45) L 03/20/18 11:52 ABG pCO2 77 mmHg (35-45) H* 03/20/18 11:52 ABG pO2 105 mmHg (85-104) H D 03/20/18 11:52 ABG O2 Saturation 97 % (95-98) 03/20/18 11:52 PT/INR, D-dimer PT 11.7 Seconds (9.4-12.1) 03/21/18 04:20 Consult Discharge Plan - Plan Referrals: Nash Ren MD [Primary Care Provider] - (1) Pneumonia Qualifiers: Pneumonia type: due to unspecified organism Laterality: right Lung location: middle lobe of lung Qualified Code(s): J18.1 - Lobar pneumonia, unspecified organism
[2018-03-23] MEDS: Azithromycin 500 MG in D5% in Water 250 ML IVPB SCH (14:44)
[2018-03-24] MEDS: Ipratropium/Albuterol Neb 3 ML IH SCH ×7 (00:32→23:40)
[2018-03-24 04:57] LABS: Basophils % 0.4 %; Hematocrit 43.5 % (35.3-44.9); Hemoglobin 13.4 g/dL (11.5-15.4); Immature Granulocytes % 2.4 % (0-4); Lymphocytes # 1.3 K/mcL (0.6-4.6); Lymphocytes % 11.9 %; Mean Corpuscular HGB Conc 30.8 g/dL (31.6-35.5); Mean Corpuscular Hemoglobin 30.1 pg (28.0-33.3); Mean Corpuscular Volume 97.8 fL (83.0-100.0); Mean Platelet Volume 9.8 fL (9.4-12.4); Monocytes # 1.1 K/mcL (0.0-1.3); Monocytes % 10.1 %; Neutrophils # 8.4 K/mcL (1.6-8.9); Platelet Count 166 K/mcL (140-400); Red Blood Count 4.45 M/mcL (3.82-4.97); Red Cell Distribution Width 11.9 % (11.5-14.5); Segmented Neutrophils % 75.2 %
[2018-03-24] MEDS: *HR* Heparin 5,000 UNIT/ML VIAL SQ SCH ×3 (05:16→20:17)
[2018-03-24 05:19] LABS: BUN/Creatinine Ratio 56 (6-26); Blood Urea Nitrogen 35 mg/dL (8-23); Calcium 9.1 mg/dL (8.6-10.3); Carbon Dioxide 36 mEq/L (23-29); Chloride 99 mEq/L (98-107); Glucose 118 mg/dL (70-105); Osmolality,Calculated 297 (280-300); Potassium 4.9 mEq/L (3.5-5.1); Sodium 139 mEq/L (136-145); eGFR For Non-African Americans > 60 (> 60)
[2018-03-24] MEDS: Budesonide/Formoterol 160/4.5 1 PUFF INH IH SCH ×2 (07:59→20:16)
[2018-03-24] MEDS: predniSONE 20 MG TABLET PO SCH (09:05)
[2018-03-24] MEDS: Aspirin Enteric Coated 81 MG Tablet PO SCH (09:05)
[2018-03-24] MEDS: Lisinopril 20 MG TABLET PO SCH (09:06)
[2018-03-24] MEDS: Azithromycin 250 MG TABLET PO SCH (09:06)
[2018-03-24] MEDS: Furosemide 20 MG TABLET PO SCH (09:06)
--- NOTE | 2018-03-24 10:38 | Internal Med Progress Note ---
Hospitalist Progress Note - Encounter Date of Encounter: 03/24/18 Time of Encounter: 10:38 - Subjective Interval History: Patient was seen and examined at bedside. Patient continues to wear BiPAP oxygen saturations are 94% I did transition the patient over to nasal cannula she is on [address] her on 4 L. She did maintain oxygen saturation 94% however patient became very anxious sensitive dropped down to 88% encourage patient to attempt to use IS cough and deep breathe and continue with attempts to transition to nasal cannula. Patient does admit she is very nervous will continue with Ativan as needed for anxiety - Exam Vitals: Temp Pulse Resp BP Pulse Ox 97.8 F 62 17 130/84 100 03/24/18 06:54 03/24/18 06:54 03/24/18 06:54 03/24/18 06:54 03/24/18 06:54 Exam: General: Patient is alert, oriented, mild respiratory distress Head: atraumatic, normocephalic, Eye: normal appearance, PERRL, no scleral icterus, no conjunctival injection ENT: mucous membranes moist, normal external ear exam Neck: normal inspection, trachea midline, full ROM, no carotid bruits Chest: normal inspection, symmetric chest rise Respiratory: Diffuse, fine wheezing in the posterior lung tariq persist, decreased breath sounds throughout. Past moist nonproductive cough Cardiovascular: RRR, s1 and s2 No clicks, rubs, gallops, or murmors. Abdomen: Bowel sounds present normoactive x-4 quadrants. Abdomen is soft, nondistended. no Epigastric tenderness. No guarding or rebound. No organomegaly noted, obese musculoskeletal: Spontaneously moving all extremities. no edema, no calf tenderness Skin: warm, dry, intact. Neuro: Alert and oriented x4. Sensation light touch intact. Cranial nerves 2- 12 is intact. No focal deficit Psych: Patient's affect is anxious - Assessment and Plan (1) Pneumonia Current Visit: Yes Status: Acute Assessment and Plan: Right middle lobe pneumonia Causative organism viral, RIP positive for RSV Strep pneumo antigen, Legionella antigen negative sputum cultures negative Continue azithromycin for anti-inflammatory properties Blood cultures remain NGTD Oxygen via nasal cannula keep sats greater than 88% per recommendations of pulmonology, wean as tolerated Continues to have some conversational dyspnea and dyspnea with exertion as well as productive cough; continue BiPAP when necessary Encourage patient to use nasal cannula, encourage incentive spirometry use CXR now Remains afebrile and hemodynamically stable WBC 10.9 Continue duo nebs, continue steroids; with persistent dyspnea I do not feel that the She will need pulmonology follow-up upon discharge 03/24 Right middle lobe [id number] positive for RSV Strep pneumonia and legionella antigen negative Sputum culture negative Continue with azithromycin Blood cultures remain N GTD Oxygen via nasal cannula we will keep sats greater than 88% per pulmonary recommendations and continue to wean. I will give Ativan for anxiety and encouraged patient to use nasal cannula as frequent as possible (2) Acute exacerbation of chronic obstructive airways disease Current Visit: No Status: Acute Assessment and Plan: Continue with scheduled nebs every 4 hours Continue with prednisone Symbicort 2 puffs twice a day daily Follow-up with pulmonary as outpatient (3) Elevated troponin Current Visit: Yes Status: Acute Assessment and Plan: Troponin mildly elevated 0.05 to 0.07, 0.05- continues to be chest pain-free since admission Most likely 2/2 demand ischemia in the setting of suspected viral pneumonia and COPD exacerbation Low concern for PEWells criteria 1.5 Continue cardiac monitoring Continue cardiac medications 03/24 Troponins were mildly elevated on presentation has been chest pain-free since admission Most likely secondary to demand ischemia in the setting of viral pneumonia and COPD exacerbation Continuous cardiac monitoring (4) (HFpEF) heart failure with preserved ejection fraction Current Visit: Yes Status: Acute Assessment and Plan: Currently not in acute exacerbation Does not appear fluid overloaded We will continue home medications if not contraindicated Strict Intake and output that negative fluid volume +870 mL Daily weight stable TTE November 2017 Impressions: LVEF 55-60%. Normal LV chamber size, wall thickness and function. Mild left ventricular diastolic dysfunction. Atypical septal motion consistent with paced rhythm. Normal right ventricular structure and function. Borderline mild pulmonary hypertension. No significant valvular dysfunction. 03/24 Does not appear to be in acute exacerbation does not appear to be fluid overloaded this time Continue with home medications Monitor intake and output -180 fluid volume Current weight 87 kg (5) Acute and chronic respiratory failure with hypoxia Current Visit: Yes Status: Acute Assessment and Plan: as above (6) Obesity (BMI 30.0-34.9) Current Visit: Yes Status: Acute Assessment and Plan: BMI 30.7 Nutrition consult Continued to discuss lifestyle modifications 03/24 Dietary consulted-encourage lifestyle changes DVT Prophylaxis: Heparin subcutaneous - Time Spent with Patient Total time spent is greater than 50% in coordination of care (as documented) at patient's floor/unit and/or counseling patient: Internal Medicine: Result - Labs CBC & Chem 7: 03/24/18 04:13 03/24/18 04:13 Labs: Short CBC 03/24/18 Range/Units 04:13 WBC 11.1 (4.3-11.1) K/mcL Hgb 13.4 (11.5-15.4) g/dL Hct 43.5 (35.3-44.9) % Plt Count 166 (140-400) K/mcL Neutrophils # 8.4 (1.6-8.9) K/mcL BMP 03/24/18 04:13 Sodium 139 Potassium 4.9 Chloride 99 Carbon Dioxide 36 H BUN 35 H Creatinine 0.63 Glucose 118 H Calcium 9.1 - ABG Interpretation ABG results: ABG ABG pH 7.30 pH Units (7.32-7.45) L 03/20/18 11:52 ABG pCO2 77 mmHg (35-45) H* 03/20/18 11:52 ABG pO2 105 mmHg (85-104) H D 03/20/18 11:52 ABG O2 Saturation 97 % (95-98) 03/20/18 11:52 PT/INR, D-dimer PT 11.7 Seconds (9.4-12.1) 03/21/18 04:20 - Impressions Impressions Chest X-Ray 03/23/18 12:37 IMPRESSION: No acute cardiopulmonary process radiographically. D/ / Maico Thomas MD / Maico Thomas MD Interpreting Provider: Maico Thomas MD Consult Discharge Plan - Plan Referrals: Nash Ren MD [Primary Care Provider] - (1) Pneumonia Qualifiers: Pneumonia type: due to unspecified organism Laterality: right Lung location: middle lobe of lung Qualified Code(s): J18.1 - Lobar pneumonia, unspecified organism
[2018-03-24] MEDS: *HR* LORazepam 0.5 MG TABLET PO PRN ×2 (11:00→16:58)
[2018-03-24] MEDS: Acetylcysteine 10% 2 ML INHSOL IH SCH ×2 (15:54→23:40)
[2018-03-25] MEDS: Ipratropium/Albuterol Neb 3 ML IH SCH ×6 (04:19→23:17)
[2018-03-25] MEDS: *HR* Heparin 5,000 UNIT/ML VIAL SQ SCH ×3 (05:24→21:22)
[2018-03-25 05:26] LABS: Basophils % 0.1 %; Eosinophils % 0.2 %; Hemoglobin 12.6 g/dL (11.5-15.4); Immature Granulocytes % 0.8 % (0-4); Lymphocytes # 2.1 K/mcL (0.6-4.6); Lymphocytes % 23.9 %; Mean Corpuscular HGB Conc 31.5 g/dL (31.6-35.5); Mean Corpuscular Hemoglobin 29.6 pg (28.0-33.3); Mean Corpuscular Volume 93.9 fL (83.0-100.0); Mean Platelet Volume 9.7 fL (9.4-12.4); Monocytes % 11.2 %; Neutrophils # 5.5 K/mcL (1.6-8.9); Platelet Count 160 K/mcL (140-400); Red Blood Count 4.26 M/mcL (3.82-4.97); Red Cell Distribution Width 11.8 % (11.5-14.5); Segmented Neutrophils % 63.8 %
[2018-03-25 05:51] LABS: BUN/Creatinine Ratio 51 (6-26); Blood Urea Nitrogen 29 mg/dL (8-23); Calcium 9.2 mg/dL (8.6-10.3); Carbon Dioxide 44 mEq/L (23-29); Chloride 95 mEq/L (98-107); Glucose 92 mg/dL (70-105); Osmolality,Calculated 295 (280-300); Potassium 4.5 mEq/L (3.5-5.1); Sodium 140 mEq/L (136-145); eGFR For Non-African Americans > 60 (> 60)
[2018-03-25] MEDS: Budesonide/Formoterol 160/4.5 1 PUFF INH IH SCH ×2 (07:54→20:13)
[2018-03-25] MEDS: Acetylcysteine 10% 2 ML INHSOL IH SCH ×3 (07:54→23:17)
[2018-03-25] MEDS: Lisinopril 20 MG TABLET PO SCH (08:22)
[2018-03-25] MEDS: Azithromycin 250 MG TABLET PO SCH (08:22)
[2018-03-25] MEDS: Aspirin Enteric Coated 81 MG Tablet PO SCH (08:22)
[2018-03-25] MEDS: predniSONE 20 MG TABLET PO SCH (08:23)
[2018-03-25] MEDS: Furosemide 20 MG TABLET PO SCH (08:23)
[2018-03-25] MEDS: *HR* LORazepam 0.5 MG TABLET PO PRN ×2 (09:35→15:50)
--- NOTE | 2018-03-25 10:30 | Internal Med Progress Note ---
Hospitalist Progress Note - Encounter Date of Encounter: 03/25/18 Time of Encounter: 10:30 - Exam Vitals: Temp Pulse Resp BP Pulse Ox 97.4 F L 68 26 108/73 92 03/25/18 07:12 03/25/18 07:12 03/25/18 07:12 03/25/18 07:12 03/25/18 07:12 Exam: General: Patient is alert, oriented, mild respiratory distress Head: atraumatic, normocephalic, Eye: normal appearance, PERRL, no scleral icterus, no conjunctival injection ENT: mucous membranes moist, normal external ear exam Neck: normal inspection, trachea midline, full ROM, no carotid bruits Chest: normal inspection, symmetric chest rise Respiratory: Diffuse, fine wheezing in the posterior lung tariq persist, decreased breath sounds throughout. Past moist nonproductive cough Cardiovascular: RRR, s1 and s2 No clicks, rubs, gallops, or murmors. Abdomen: Bowel sounds present normoactive x-4 quadrants. Abdomen is soft, nondistended. no Epigastric tenderness. No guarding or rebound. No organomegaly noted, obese musculoskeletal: Spontaneously moving all extremities. no edema, no calf tenderness Skin: warm, dry, intact. Neuro: Alert and oriented x4. Sensation light touch intact. Cranial nerves 2- 12 is intact. No focal deficit Psych: Patient's affect is anxious - Assessment and Plan (1) Acute and chronic respiratory failure with hypoxia Current Visit: Yes Status: Acute Assessment and Plan: Likely 2/2 to acute COPD exacerbation. Pt's hypoxemia has improved but she continues to be short of breath requring BiPAP ABG today showed ph 7.36, PCO2 of 83. Continue BIpap. Will qualify for BIPAP overnight and plan for discharge in am (2) Acute exacerbation of chronic obstructive airways disease Current Visit: No Status: Acute Assessment and Plan: Continue with scheduled nebs every 4 hours Continue with prednisone Symbicort 2 puffs twice a day daily Follow-up with pulmonary as outpatient (3) Pneumonia Current Visit: Yes Status: Acute Assessment and Plan: 03/25 Right middle lobe [id number] positive for RSV Strep pneumonia and legionella antigen negative Sputum culture negative Continue with azithromycin Blood cultures remain N GTD Oxygen via nasal cannula we will keep sats greater than 88% per pulmonary recommendations and continue to wean. I will give Ativan for anxiety and encouraged patient to use nasal cannula as frequent as possible (4) Elevated troponin Current Visit: Yes Status: Acute Assessment and Plan: Troponin mildly elevated 0.05 to 0.07, 0.05- continues to be chest pain-free since admission Most likely 2/2 demand ischemia in the setting of suspected viral pneumonia and COPD exacerbation Low concern for PEWells criteria 1.5 Continue cardiac monitoring Continue cardiac medications 03/24 Troponins were mildly elevated on presentation has been chest pain-free since admission Most likely secondary to demand ischemia in the setting of viral pneumonia and COPD exacerbation Continuous cardiac monitoring (5) (HFpEF) heart failure with preserved ejection fraction Current Visit: Yes Status: Acute Assessment and Plan: Currently not in acute exacerbation Does not appear fluid overloaded We will continue home medications if not contraindicated Strict Intake and output that negative fluid volume +870 mL Daily weight stable TTE November 2017 Impressions: LVEF 55-60%. Normal LV chamber size, wall thickness and function. Mild left ventricular diastolic dysfunction. Atypical septal motion consistent with paced rhythm. Normal right ventricular structure and function. Borderline mild pulmonary hypertension. No significant valvular dysfunction. 03/24 Does not appear to be in acute exacerbation does not appear to be fluid overloaded this time Continue with home medications Monitor intake and output -180 fluid volume Current weight 87 kg (6) Obesity (BMI 30.0-34.9) Current Visit: Yes Status: Acute Assessment and Plan: BMI 30.7 Nutrition consult Continued to discuss lifestyle modifications 03/24 Dietary consulted-encourage lifestyle changes DVT Prophylaxis: Heparin subcutaneous - Time Spent with Patient Total time spent is greater than 50% in coordination of care (as documented) at patient's floor/unit and/or counseling patient: Internal Medicine: Result - Labs CBC & Chem 7: 03/25/18 04:52 03/25/18 04:52 Labs: Short CBC 03/25/18 Range/Units 04:52 WBC 8.7 (4.3-11.1) K/mcL Hgb 12.6 (11.5-15.4) g/dL Hct 40.0 (35.3-44.9) % Plt Count 160 (140-400) K/mcL Neutrophils # 5.5 (1.6-8.9) K/mcL BMP 03/25/18 04:52 Sodium 140 Potassium 4.5 Chloride 95 L Carbon Dioxide 44 H* BUN 29 H Creatinine 0.57 L Glucose 92 Calcium 9.2 - ABG Interpretation ABG results: ABG ABG pH 7.30 pH Units (7.32-7.45) L 03/20/18 11:52 ABG pCO2 77 mmHg (35-45) H* 03/20/18 11:52 ABG pO2 105 mmHg (85-104) H D 03/20/18 11:52 ABG O2 Saturation 97 % (95-98) 03/20/18 11:52 PT/INR, D-dimer PT 11.7 Seconds (9.4-12.1) 03/21/18 04:20 Consult Discharge Plan - Plan Referrals: Nash Ren MD [Primary Care Provider] - 03/31/18 10:15 am (3) Pneumonia Qualifiers: Pneumonia type: due to unspecified organism Laterality: right Lung location: middle lobe of lung Qualified Code(s): J18.1 - Lobar pneumonia, unspecified organism
[2018-03-25 10:57] LABS: ABG Base Excess 16 mEq/L (-2 to 3); ABG HCO3 47 mEq/L (21-27); ABG Oxygen Saturation 90 % (95-98); ABG PCO2 83 mmHg (35-45); ABG PH 7.36 pH Units (7.32-7.45); ABG PO2 65 mmHg (85-104); ABG TCO2 50 mEq/L (20-26)
--- NOTE | 2018-03-25 15:06 | Palliative - Consult Note ---
Date of Encounter: 03/25/18 Time of Encounter: 14:00 - Assessment and Plan (1) Anxiety Current Visit: Yes Status: Acute Assessment and plan: Patient reports continued anxiety. Patient has received 2 doses of PRN Ativan in the last 24 hours. Continue as ordered. (2) Constipation Current Visit: Yes Status: Acute Assessment and plan: Patient has had no bowel movements documented since admission. Hypoactive bowel sounds. Add bowel regimen. Qualifiers: Constipation type: unspecified constipation type Qualified Code(s): K59.00 - Constipation, unspecified (3) Acute exacerbation of chronic obstructive airways disease Current Visit: No Status: Acute Assessment and plan: Pulmonary consult appreciated. Plan to discharge patient home with Oxygen, BiPAP, Home health, and outpatient follow up with Count Team Clerk. (4) Shortness of breath Current Visit: No Status: Resolved Assessment and plan: Patient reports shortness of breath has improved. Verbalized understanding that oxygen needs may be higher now than before admission. Also able to verbalize risks of not wearing oxygen as prescribed. (5) Pneumonia Current Visit: Yes Status: Acute Assessment and plan: Management per primary team. Patient receiving PO Antibiotics. Qualifiers: Pneumonia type: due to unspecified organism Laterality: right Lung location: middle lobe of lung Qualified Code(s): J18.1 - Lobar pneumonia, uns pecified organism (6) (HFpEF) heart failure with preserved ejection fraction Current Visit: Yes Status: Acute (7) Goals of care, counseling/discussion Current Visit: Yes Status: Acute Assessment and plan: Conducted lengthy goals of care discussion with patient. No family present. Patient reports she lives at home with her son. She does not smoke, but family smokes frequently, but not near patient. Patient has normal routine of day with breathing treatments and oxygen. Understands lung disease has gotten worse, but reports "not ready to give up just yet." Patient educated and verbalized understanding of nature of progressive lung disease. Discussed Home health versus Hospice care; desires [facility] at discharge, referral has been called and discharge order requested from Dr. Sierra. Patient desires to attempt to improve lung function with use of BiPAP and follow up with outpatient Count Team Clerk; reports feels has not maximized management of COPD at this time. Patient desires CODE STATUS to remain FULL CODE. Patient's mother had been intubated and survived at the age patient is now. Patient desires to continue living as long as she can. Understands may switch to hospice at any time. Updated patient's primary RN Jessenia of goals of care and discharge planning needs. Palliative-CN HPI - Data of Consult Patient: new to practice Consult date: 03/25/18 Requesting Physician: Vasquez Sierra Primary Care Provider: Nash Ren MD - Consult Narrative Palliative Care/Comfort Measures: Palliative care Reason for consult: Goals of care; end stage COPD and multiple readmissions. History of present illness: Ms. Corrales is a 72 year old female Arrived to [facility] on 03/20/18, with complaints of shortness of breath. PMH: COPD (Oxygen dependent; no history of BiPAP at home), CHF, HTN, Anxiety, and pacemaker. Patient admitted with shortness of breath, Viral Pneumonia, tachycardia, and elevated troponins. Chest x-ray showing: Middle lobe atelectasis or pneumonia. EKG showing: Artifact with ventricular paced rhythm. Pulmonary consulted; recommend BiPAP, Symbicort, and outpatient follow up. Repeat Chest x-ray showing improvement. Patient noted to be incredibly anxious by primary team with Ativan added; improvement noted. Patient transitioned from BiPAP to Nasal cannula; found sensitive to desaturation and noted to be on oxy-mask. Palliative care consulted for End Stage COPD and Multiple admissions; patient has been admitted twice this year. Patient sitting up at bedside upon arrival for assessment. Patient is alert and oriented times 3; no family present at bedside. Patient able to fully participate in goals of care discussion. Patient reports continued anxiety and shortness of breath; denies pain, nausea and vomiting. Has been utilizing breathing treatments and Ativan PRN. CC: Vasquez Sierra - Time Spent with Patient Time: Total time spent is greater than 50% in coordination of care (as documented) at patient's floor/unit and/or counseling patient: Time with patient: 45 minutes Past Med Surg Social Fam HX - Past Medical History Medical history: CHF, COPD, hypertension Psychiatric history: anxiety - Past Surgical History Surgical History: pacemaker/AICD - Social History Smoking Status: Former smoker Alcohol use: none Drug use: none - Family History Brother History Unknown: Yes Hx Family Cardiac Disorders: Yes (afib) Daughter History Unknown: Yes Hx Family Cardiac Disorders: Yes (tachycardia) Medications and Allergies Albuterol Neb [Proventil Neb] 3 ml IH TID 11/24/17 [History] Albuterol Sulfate [Ventolin Hfa] 2 puff IH Q4H 11/24/17 [History] Aspirin [Adult Aspirin] 81 mg PO DAILY 11/24/17 [History] Carvedilol 12.5 mg PO BID 11/24/17 [History] DiphenhydraMINE [Benadryl] 25 mg PO HS 11/24/17 [History] Fluticasone/Salmeterol [Advair 250-50 Diskus] 1 puff IH BID 11/24/17 [History] Furosemide [Lasix] 20 mg PO DAILY 11/24/17 [History] LORazepam [Ativan] 0.5 mg PO BID PRN 11/24/17 [History] Lisinopril [Zestril] 20 mg PO DAILY 11/24/17 [History] Cefdinir [Omnicef] 300 mg PO BID 03/20/18 [History] Allergy/AdvReac Type Severity Reaction Status Date / Time morphine Allergy Rash Verified 11/24/17 20:22 prednisone AdvReac See Verified 03/20/18 08:18 Comments - Constitutional Constitutional ROS PAL: no decreased appetite, no fatigue, no weight loss - Cardiovascular Cardiovascular ROS: dyspnea on exertion, no chest pain - Respiratory Respiratory: cough, dyspnea, wheezing, change in phlegm color - Gastrointestinal Gastrointestinal: no change in stool character, no nausea, no vomiting - Neurological Neurological ROS: weakness, no dizziness - Psychiatric Psychiatric general PM: anxiety Palliative Care-Exam - Constitutional Vitals: Temp Pulse Resp BP Pulse Ox 97.4 F L 64 23 108/72 97 03/25/18 12:14 03/25/18 12:14 03/25/18 12:14 03/25/18 12:14 03/25/18 12:14 General appearance: Present: mild distress, morbidly obese - Head Head Exam: Present: atraumatic, normal inspection - Eye Eye exam: Present: EOMI, normal appearance, PERRL - ENT ENT exam: Present: mucous membranes dry, normal external ear exam - Expanded ENT Exam Mouth Exam: Absent: drooling - Neck Neck exam: Present: full ROM, normal inspection. Absent: tenderness - Respiratory Respiratory exam: Present: accessory muscle use, wheezes. Absent: respiratory distress - Cardiovascular Cardiovascular exam: Present: +S1, +S2 - Expanded Cardiovascular Exam Peripheral pulses: 1+: Posterior Tibialis (L), Posterior Tibialis (R), Dorsalis Pedis (L) PM, Dorsalis Pedis (R) PM, 2+: Radial (L), Radial (R) - GI/Abdominal Exam GI/Abdominal exam: Present: diminished bowel sounds, soft. Absent: tenderness - Rectal Rectal exam: Present: deferred - Extremities Exam Extremities exam: Present: full ROM, normal inspection - Back Exam Back exam: Present: full ROM, normal inspection - Neurological Exam Neurological exam: Present: alert, oriented X3, strengths equal and symetr throughout. Absent: altered - Expanded Neurological Exam Patient oriented to: Present: person, place, time Coma Scale Eye Opening: Spontaneous Coma Scale Motor Response: Obeys Commands Coma Scale Verbal Response: Oriented Coma Scale Total: 15 - Psychiatric Psychiatric exam: Present: anxious Internal Medicine - CN: Reslt - Labs CBC & Chem 7: 03/25/18 04:52 03/25/18 04:52 Labs: Short CBC 03/25/18 Range/Units 04:52 WBC 8.7 (4.3-11.1) K/mcL Hgb 12.6 (11.5-15.4) g/dL Hct 40.0 (35.3-44.9) % Plt Count 160 (140-400) K/mcL Neutrophils # 5.5 (1.6-8.9) K/mcL BMP 03/25/18 04:52 Sodium 140 Potassium 4.5 Chloride 95 L Carbon Dioxide 44 H* BUN 29 H Creatinine 0.57 L Glucose 92 Calcium 9.2 - ABG Interpretation ABG results: ABG ABG pH 7.36 pH Units (7.32-7.45) 03/25/18 10:53 ABG pCO2 83 mmHg (35-45) H* 03/25/18 10:53 ABG pO2 65 mmHg (85-104) L 03/25/18 10:53 ABG O2 Saturation 90 % (95-98) L 03/25/18 10:53 PT/INR, D-dimer PT 11.7 Seconds (9.4-12.1) 03/21/18 04:20 Consult Discharge Plan - Plan Referrals: Nash Ren MD [Primary Care Provider] - 03/31/18 10:15 am Palliative Quality Palliative Quality: Screen for Code Status: Yes, Screen for Goals of Care: Yes, Screen for Pain: Yes, If Pain Regimen Started, Initiate Bowel Regimen: NA, Screen for Nausea/Vomitting: Yes Code Status: 03/20/18 08:59 Resuscitation Status: Active [RES] Routine Comment: Resuscitation Status: Full Code
[2018-03-25] MEDS: Sennosides/Docusate Sodium TABLET PO SCH (15:49)
[2018-03-26] MEDS: Ipratropium/Albuterol Neb 3 ML IH SCH ×6 (04:10→23:03)
[2018-03-26] MEDS: *HR* Heparin 5,000 UNIT/ML VIAL SQ SCH ×3 (05:22→21:22)
[2018-03-26] MEDS: Budesonide/Formoterol 160/4.5 1 PUFF INH IH SCH ×2 (07:39→20:32)
[2018-03-26] MEDS: Acetylcysteine 10% 2 ML INHSOL IH SCH ×3 (07:39→23:03)
[2018-03-26] MEDS: predniSONE 20 MG TABLET PO SCH (08:30)
[2018-03-26] MEDS: Sennosides/Docusate Sodium TABLET PO SCH (08:30)
[2018-03-26] MEDS: Aspirin Enteric Coated 81 MG Tablet PO SCH (08:31)
[2018-03-26] MEDS: *HR* LORazepam 0.5 MG TABLET PO PRN ×2 (08:31→23:48)
[2018-03-26] MEDS: Furosemide 20 MG TABLET PO SCH (08:31)
[2018-03-26] MEDS: Lisinopril 20 MG TABLET PO SCH (08:31)
[2018-03-26] MEDS: Azithromycin 250 MG TABLET PO SCH (08:31)
--- NOTE | 2018-03-26 09:58 | Physician Discharge Referral ---
Home Health/Hosp Referral Info Transfer to: Home Health - Diagnosis (1) Acute and chronic respiratory failure with hypoxia Priority: Primary Status: Acute (2) Acute exacerbation of chronic obstructive airways disease Priority: Primary Status: Acute (3) Pneumonia Priority: Primary Status: Acute (4) Elevated troponin Priority: Primary Status: Acute (5) (HFpEF) heart failure with preserved ejection fraction Priority: Primary Status: Acute (6) Obesity (BMI 30.0-34.9) Priority: Primary Status: Acute - Respiratory Orders Smoking Cessation: Smoking cessation has been advised. For more information, call the [place] [employer] Quit Line at 0-874-DBAV-NOW. - Diet/Nutrition Diet/Nutrition Orders: Cardiac - Activity Activity Orders: Ambulate - Services Needed Following services are medically necessary services: Nursing, Home Health Aide, Physical Therapy - Transfer Medications Prescriptions: Azithromycin [Azithromycin 6-Tab Pack] 250 mg PO PER PKG DI #6 tab Budesonide/Formoterol 160/4.5 [Symbicort 160/4.5] 2 puff IH BIDR 30 Days #1 inh PredniSONE [Deltasone] 20 mg PO DAILY 4 Days #4 tablet predniSONE [PredniSONE] 10 mg PO DAILY 4 Days #4 tablet predniSONE [PredniSONE] 40 mg PO DAILY 4 Days #8 tablet Home Medications: Albuterol Neb [Proventil Neb] 3 ml IH TID 11/24/17 [History] Albuterol Sulfate [Ventolin Hfa] 2 puff IH Q4H 11/24/17 [History] Aspirin [Adult Aspirin] 81 mg PO DAILY 11/24/17 [History] Carvedilol 12.5 mg PO BID 11/24/17 [History] DiphenhydraMINE [Benadryl] 25 mg PO HS 11/24/17 [History] Fluticasone/Salmeterol [Advair 250-50 Diskus] 1 puff IH BID 11/24/17 [History] Furosemide [Lasix] 20 mg PO DAILY 11/24/17 [History] LORazepam [Ativan] 0.5 mg PO BID PRN 11/24/17 [History] Lisinopril [Zestril] 20 mg PO DAILY 11/24/17 [History] Azithromycin [Azithromycin 6-Tab Pack] 250 mg PO PER PKG DI #6 tab 03/26/18 [Rx] Budesonide/Formoterol 160/4.5 [Symbicort 160/4.5] 2 puff IH BIDR 30 Days #1 inh 03/26/18 [Rx] PredniSONE [Deltasone] 20 mg PO DAILY 4 Days #4 tablet 03/26/18 [Rx] predniSONE [PredniSONE] 10 mg PO DAILY 4 Days #4 tablet 03/26/18 [Rx] predniSONE [PredniSONE] 40 mg PO DAILY 4 Days #8 tablet 03/26/18 [Rx] Allergies/Adverse Reactions: Allergy/AdvReac Type Severity Reaction Status Date / Time morphine Allergy Rash Verified 11/24/17 20:22 prednisone AdvReac See Verified 03/20/18 08:18 Comments Certification: Further, I certify that my clinical findings support that this patient is ho mebound (i.e. absences from home require considerable and taxing effort and are for medical reasons or confucianism services or infrequently or short duration when for other reasons) because: Homebound Reason: Patient requires assistance of a person or device to safely leave home Attestation: My signature below is to certify that this patient is under my care and that I, or nurse practitioner, or a physician's cleaner assistant working with me, has a [id number] encounter with this patient.
--- NOTE | 2018-03-26 10:34 | Discharge Summary ---
<Sammie Vallejo E - Last Filed: 03/26/18 15:13> Date of Encounter: 03/26/18 Time of Encounter: 10:32 - Discharge Diagnosis (1) (HFpEF) heart failure with preserved ejection fraction Priority: Secondary Status: Acute (2) Acute and chronic respiratory failure with hypoxia Priority: Primary Status: Acute (3) Elevated troponin Priority: Primary Status: Resolved (4) Pneumonia Priority: Primary Status: Acute Qualifiers: Pneumonia type: due to unspecified organism Laterality: right Lung location: middle lobe of lung Qualified Code(s): J18.1 - Lobar pneumonia, unspecified organism (5) Acute exacerbation of chronic obstructive airways disease Priority: Primary Status: Acute Hospital course: Ms. Corrales is a 72 year old female presented to the emergency department for shortness of breath on 03/20 Patient states this is been ongoing for the last 24-48 hours. Patient states that she has had a cough as well with productive green sputum. Patient states that she has a history of COPD and her breathing has gotten worse. Patient states that she does use oxygen as needed at home. Patient states that she wears 2 L of oxygen as needed at home however has been requiring to wear oxygen continuously due to having worsening of her respiratory status. She was treated for Pneumonia and her respiratory panel shows RSV. Elevated troponin likely was due the demand. LAst night patient was tested to see if she qualified for BIPAP at home. Discharge discussed with: patient - Time Spent with Patient Total time spent providing and/or coordinating discharge services: - Discharge Medications Prescriptions: Azithromycin [Azithromycin 6-Tab Pack] 250 mg PO PER PKG DI #6 tab Budesonide/Formoterol 160/4.5 [Symbicort 160/4.5] 2 puff IH BIDR 30 Days #1 inh GuaiFENesin ER [Mucinex] 600 mg PO BID 30 Days #1 tbbp.12hr PredniSONE [Deltasone] 20 mg PO DAILY 4 Days #4 tablet predniSONE [PredniSONE] 10 mg PO DAILY 4 Days #4 tablet predniSONE [PredniSONE] 40 mg PO DAILY 4 Days #8 tablet Home Medications: Albuterol Neb [Proventil Neb] 3 ml IH TID 11/24/17 [History] Albuterol Sulfate [Ventolin Hfa] 2 puff IH Q4H 11/24/17 [History] Aspirin [Adult Aspirin] 81 mg PO DAILY 11/24/17 [History] Carvedilol 12.5 mg PO BID 11/24/17 [History] DiphenhydraMINE [Benadryl] 25 mg PO HS 11/24/17 [History] Fluticasone/Salmeterol [Advair 250-50 Diskus] 1 puff IH BID 11/24/17 [History] Furosemide [Lasix] 20 mg PO DAILY 11/24/17 [History] LORazepam [Ativan] 0.5 mg PO BID PRN 11/24/17 [History] Lisinopril [Zestril] 20 mg PO DAILY 11/24/17 [History] Azithromycin [Azithromycin 6-Tab Pack] 250 mg PO PER PKG DI #6 tab 03/26/18 [Rx] Budesonide/Formoterol 160/4.5 [Symbicort 160/4.5] 2 puff IH BIDR 30 Days #1 inh 03/26/18 [Rx] GuaiFENesin ER [Mucinex] 600 mg PO BID 30 Days #1 tbbp.12hr 03/26/18 [Rx] PredniSONE [Deltasone] 20 mg PO DAILY 4 Days #4 tablet 03/26/18 [Rx] predniSONE [PredniSONE] 10 mg PO DAILY 4 Days #4 tablet 03/26/18 [Rx] predniSONE [PredniSONE] 40 mg PO DAILY 4 Days #8 tablet 03/26/18 [Rx] Allergies/Adverse Reactions: Allergy/AdvReac Type Severity Reaction Status Date / Time morphine Allergy Rash Verified 11/24/17 20:22 prednisone AdvReac See Verified 03/20/18 08:18 Comments Date of admission: 03/20/18 08:59 Primary care physician: Nash Ren MD Consults: 03/20/18 12:01 Consult to Pulmonology [CONS] Routine Consulting Provider: Pulm Crit Care [facility] Sleep [place] Reason for Consult: acute hypercapnic and hypoxic respiratory failure not improving on BIPAP Call Completed: No 03/23/18 08:36 Consult to Nurse Navigator [CONS] Routine Comment: copd,chf 03/25/18 10:45 Consult to Palliative Care [CONS] Routine Comment: Consulting Provider: Palliative Care Tram Reason for Consult: endstage copd with multiple admits Call Completed: No 03/25/18 15:32 Consult to Occupational Therapy [CONS] Routine Comment: Evaluate, develop and implement POC Reason for Consult: weakness. Does patient have active BEDREST order?: No Is patient medically & hemodynamically stable?: Yes Consult to Physical Therapy [CONS] Routine Comment: Evaluate, develop and implement POC Reason for Consult: weakness Does patient have active BEDREST order?: No Is patient medically & hemodynamically stable?: Yes Discharging clinician: Vasquez Sierra Anticipated date of discharge: 03/26/18 - Constitutional Vitals: Temp Pulse Resp BP Pulse Ox 98.8 F 72 18 126/71 97 03/26/18 08:47 03/26/18 08:47 03/26/18 08:47 03/26/18 08:47 03/26/18 08:47 Exam: General: AAOx3, answers questions appropriately Cardio: RRR, no murmurs, rubs, or gallops Pulm: Diminished breath sounds in lower lobes, some wheezing noticed throughout Abd: normal bowel sounds, no guarding/rigidity, no tenderness on palpation Extremities: no pedal edema, pulses equal in all 4 extremities - Patient Status Disposition: Home, Self-Care Condition: Good Functional capacity at discharge: independent ambulation Overall status at discharge: patient is progressing back to baseline - Discharge Instructions Instructions: COPD Exacerbation, Mold Puller (GEN) Follow Up With: Nash eRn MD [Primary Care Provider] - 03/31/18 10:15 am Additional Instructions: Take all medications as prescribed Follow up with your primary care doctor Use home oxygen as needed for shortness of breath - Diet and Activity Activity: increase activity as tolerated Diet: advance to your usual diet <Vasquez Sierra - Last Filed: 03/26/18 16:55> Date of Encounter: 03/26/18 - Discharge Diagnosis (1) Acute and chronic respiratory failure with hypoxia Status: Acute (2) Acute exacerbation of chronic obstructive airways disease Status: Acute (3) Pneumonia Status: Acute Qualifiers: Pneumonia type: due to unspecified organism Laterality: right Lung locati on: middle lobe of lung Qualified Code(s): J18.1 - Lobar pneumonia, unspecified organism (4) Elevated troponin Status: Resolved (5) (HFpEF) heart failure with preserved ejection fraction Status: Acute (6) Obesity (BMI 30.0-34.9) Status: Acute Hospital course: Ms. Corrales is a 72 year old female - Time Spent with Patient Total time spent providing and/or coordinating discharge services: Date of admission: 03/20/18 08:59 Primary care physician: Nash Ren MD Consults: 03/20/18 12:01 Consult to Pulmonology [CONS] Routine Consulting Provider: Pulm Crit Care [facility] Sleep [facility] Reason for Consult: acute hypercapnic and hypoxic respiratory failure not improving on BIPAP Call Completed: No 03/23/18 08:36 Consult to Nurse Navigator [CONS] Routine Comment: copd,chf 03/25/18 10:45 Consult to Palliative Care [CONS] Routine Comment: Consulting Provider: Palliative Care [place] Reason for Consult: endstage copd with multiple admits Call Completed: No 03/25/18 15:32 Consult to Occupational Therapy [CONS] Routine Comment: Evaluate, develop and implement POC Reason for Consult: weakness. Does patient have active BEDREST order?: No Is patient medically & hemodynamically stable?: Yes Consult to Physical Therapy [CONS] Routine Comment: Evaluate, develop and implement POC Reason for Consult: weakness Does patient have active BEDREST order?: No Is patient medically & hemodynamically stable?: Yes - Constitutional Vitals: Temp Pulse Resp BP Pulse Ox 98.1 F 71 20 137/77 97 03/26/18 11:58 03/26/18 11:58 03/26/18 11:58 03/26/18 11:58 03/26/18 11:58 - Attending Attestation I have seen and assessed this patient and agree with discharge summary per resident as above General: AAOx3, answers questions appropriately Cardio: RRR, no murmurs, rubs, or gallops Pulm: Diminished breath sounds in lower lobes, some wheezing noticed throughout Abd: normal bowel sounds, no guarding/rigidity, no tenderness on palpation Extremities: no pedal edema, pulses equal in all 4 extremities Plan Acute on chronic respiratory failure with pneumonia and COPD exacerbation. Patient will likely need home BIPAP. BIPAP qualification study to be done tonight. Likely discharge in am
[2018-03-27] MEDS: Ipratropium/Albuterol Neb 3 ML IH SCH ×3 (03:34→11:52)
[2018-03-27] MEDS: *HR* Heparin 5,000 UNIT/ML VIAL SQ SCH (05:55)
[2018-03-27 07:41] VITALS: BP 160/76
[2018-03-27] MEDS: Budesonide/Formoterol 160/4.5 1 PUFF INH IH SCH (07:51)
[2018-03-27] MEDS: Acetylcysteine 10% 2 ML INHSOL IH SCH (07:52)
[2018-03-27] MEDS: Lisinopril 20 MG TABLET PO SCH (07:58)
[2018-03-27] MEDS: Sennosides/Docusate Sodium TABLET PO SCH (07:58)
[2018-03-27] MEDS: Aspirin Enteric Coated 81 MG Tablet PO SCH (07:58)
[2018-03-27] MEDS: predniSONE 20 MG TABLET PO SCH (07:58)
[2018-03-27] MEDS: Furosemide 20 MG TABLET PO SCH (07:58)
[2018-03-27] MEDS: Azithromycin 250 MG TABLET PO SCH (07:59)
--- NOTE | 2018-03-27 13:51 | Internal Med Progress Note ---
<Sammie Vallejo E - Last Filed: 03/27/18 13:49> Hospitalist Progress Note - Encounter Date of Encounter: 03/27/18 Time of Encounter: 10:00 - Subjective Interval History: Ms. Calvo was seen at bedside today. She stated her breathign was a bit better. She was still worried abotu going hoem but after talking to her about how jihan course of RSV will be she understood. She will be discharged today. - Exam Vitals: Temp Pulse Resp BP Pulse Ox 97.6 F 80 15 160/76 94 03/27/18 07:40 03/27/18 07:40 03/27/18 11:52 03/27/18 07:40 03/27/18 11:52 Exam: General: AAOx3, answers questions appropriately Cardio: RRR, no murmurs, rubs, or gallops Pulm: Diminished breath sounds in lower lobes, some wheezing noticed throughout Abd: normal bowel sounds, no guarding/rigidity, no tenderness on palpation Extremities: no pedal edema, pulses equal in all 4 extremities - Assessment and Plan (1) (HFpEF) heart failure with preserved ejection fraction Status: Acute Assessment and Plan: Does not appear to be in acute exacerbation does not appear to be fluid overloaded this time Continue with home medications (2) Acute and chronic respiratory failure with hypoxia Status: Acute Assessment and Plan: Likely 2/2 to acute COPD exacerbation. Pt's hypoxemia has improved. Down to 2L of O2 which is her home O2 usage. (3) Elevated troponin Status: Resolved Assessment and Plan: likely secondary to demand ischemia (4) Pneumonia Status: Acute Assessment and Plan: TEsted positive for RSV. Will continue azythromycin at home for the antiinflammatory properties (5) Acute exacerbation of chronic obstructive airways disease Status: Acute Assessment and Plan: Continue with scheduled nebs every 4 hours Continue with prednisone Symbicort 2 puffs twice a day daily Follow-up with pulmonary as outpatient DVT Prophylaxis: Heparin subcutaneous - Time Spent with Patient Total time spent is greater than 50% in coordination of care (as documented) at patient's floor/unit and/or counseling patient: Internal Medicine: Result - Labs CBC & Chem 7: 03/25/18 04:52 03/25/18 04:52 - ABG Interpretation ABG results: ABG ABG pH 7.36 pH Units (7.32-7.45) 03/25/18 10:53 ABG pCO2 83 mmHg (35-45) H* 03/25/18 10:53 ABG pO2 65 mmHg (85-104) L 03/25/18 10:53 ABG O2 Saturation 90 % (95-98) L 03/25/18 10:53 PT/INR, D-dimer PT 11.7 Seconds (9.4-12.1) 03/21/18 04:20 Consult Discharge Plan - Plan Instructions: COPD Exacerbation, Tax Services Manager (GEN) Additional Instructions: Take all medications as prescribed Follow up with your primary care doctor Use home oxygen as needed for shortness of breath Referrals: Che Villagran MD [Partnered Physician] - (Your appointment has been requested. Our offices will call with an appointment time and date. Thank You. ) Nash Ren MD [Primary Care Provider] - 03/31/18 10:15 am Prescriptions: Azithromycin [Azithromycin 6-Tab Pack] 250 mg PO PER PKG DI #6 tab Budesonide/Formoterol 160/4.5 [Symbicort 160/4.5] 2 puff IH BIDR 30 Days #1 inh GuaiFENesin ER [Mucinex] 600 mg PO BID 30 Days #1 tbbp.12hr PredniSONE [Deltasone] 20 mg PO DAILY 4 Days #4 tablet predniSONE [PredniSONE] 10 mg PO DAILY 4 Days #4 tablet predniSONE [PredniSONE] 40 mg PO DAILY 4 Days #8 tablet <Vasquez Sierra - Last Filed: 03/27/18 19:01> Hospitalist Progress Note - Encounter Date of Encounter: 03/27/18 - Exam Vitals: Temp Pulse Resp BP Pulse Ox 97.6 F 80 15 160/76 94 03/27/18 07:40 03/27/18 07:40 03/27/18 11:52 03/27/18 07:40 03/27/18 11:52 - Assessment and Plan (1) Acute and chronic respiratory failure with hypoxia Status: Acute (2) Acute exacerbation of chronic obstructive airways disease Status: Acute (3) Pneumonia Status: Acute (4) Elevated troponin Status: Resolved (5) (HFpEF) heart failure with preserved ejection fraction Status: Acute (6) Obesity (BMI 30.0-34.9) Status: Acute - Time Spent with Patient Total time spent is greater than 50% in coordination of care (as documented) at patient's floor/unit and/or counseling patient: Internal Medicine: Result - Labs CBC & Chem 7: 03/25/18 04:52 03/25/18 04:52 - ABG Interpretation ABG results: ABG ABG pH 7.36 pH Units (7.32-7.45) 03/25/18 10:53 ABG pCO2 83 mmHg (35-45) H* 03/25/18 10:53 ABG pO2 65 mmHg (85-104) L 03/25/18 10:53 ABG O2 Saturation 90 % (95-98) L 03/25/18 10:53 PT/INR, D-dimer PT 11.7 Seconds (9.4-12.1) 03/21/18 04:20 - Attending Attestation I have seen and assessed this patient and agree with plan per resident as above General: AAOx3, answers questions appropriately Cardio: RRR, no murmurs, rubs, or gallops Pulm: Diminished breath sounds in lower lobes, some wheezing noticed throughout Abd: normal bowel sounds, no guarding/rigidity, no tenderness on palpation Extremities: no pedal edema, pulses equal in all 4 extremities Plan Acute on chronic respiratory failure with pneumonia and COPD exacerbation. Patient will likely need home BIPAP. Patient failed to qualify for BIPAP. Discharged home in a stable condition <Sammie Vallejo - Last Filed: 03/27/18 13:49> (4) Pneumonia Qualifiers: Pneumonia type: due to unspecified organism Laterality: right Lung location: middle lobe of lung Qualified Code(s): J18.1 - Lobar pneumonia, unspecified organism <Vasquez Sierra - Last Filed: 03/27/18 19:01> (3) Pneumonia Qualifiers: Pneumonia type: due to unspecified organism Laterality: right Lung location: middle lobe of lung Qualified Code(s): J18.1 - Lobar pneumonia, unspecified organism
== END 2018-03-27 13:43 | disposition home or self-care (01) | DRG 193 ==
LOC: EMEROOARM 01:50 → 2ANU 01:50 → SUATTDRO 08:59 → 3BNU 15:01
PROVIDERS: ADMIT Family Medicine; ATTEND Student in an Organized Health Care Education/Training Program

== ENCOUNTER 2018-11-20 06:57 | Inpatient (IN) ==
[2018-11-20] MEDS ORDERED: Ipratropium/Albuterol Neb 3 ML ONE ×2 (07:01→07:59)
[2018-11-20] MEDS ORDERED: 0.9 % Sodium Chloride 1,000 ML IVC ONE (07:07)
[2018-11-20] MEDS ORDERED: Ipratropium/Albuterol Neb 3 ML IH ONE (07:08)
[2018-11-20] MEDS ORDERED: methylPREDNISolone 125 MG/2 ML VIAL IVP ONE (07:08)
--- NOTE | 2018-11-20 07:10 | Emergency Department Note ---
Disposition Clinical Impression: Acute and chronic respiratory failure with hypoxia, Acute exacerbation of chronic obstructive airways disease Disposition: Admitted As Inpatient Condition: Fair Time of Disposition: 08:36 General Adult HPI - General Stated complaint: Too Time Seen by Provider: 11/20/18 07:06 Source: patient, EMS Mode of arrival: EMS Limitations: no limitations Nursing Notes Reviewed: Yes Vital Signs Reviewed: Yes - History of Present Illness HPI Narrative: Male patient presenting to the emergency department in respiratory distress. EMS reports that son called them for respiratory distress. She does wear oxygen all the time at home for history of COPD. They report that her oxygen machine was out at this time. They did attempt to assist her ventilations with the BVM secondary to her tachypnea. And then placed her on CPAP. They report that this has had the most significant change in the patient's history status with the CPAP. Patient reports that this morning she got extremely short of breath. She does report a productive cough. Denies any chest pain. Pain Scale: 0 - Related Data Home Medications Medication Instructions Recorded Confirmed Albuterol Sulfate [Ventolin Hfa] 2 puff IH Q4H 11/24/17 11/16/18 Aspirin [Adult Aspirin] 81 mg PO DAILY 11/24/17 11/16/18 Carvedilol 12.5 mg PO BID 11/24/17 11/16/18 DiphenhydraMINE [Benadryl] 25 mg PO HS 11/24/17 11/16/18 Furosemide [Lasix] 20 mg PO DAILY 11/24/17 11/16/18 LORazepam [Ativan] 0.5 mg PO BID PRN 11/24/17 11/16/18 Acetaminophen [Tylenol] 500 mg PO 4XW PRN 07/23/18 11/16/18 Cholecalciferol (D-3) [Vitamin D] 5,000 unit PO DAILY 07/23/18 11/16/18 Ipratropium/Albuterol Sulfate 3 ml IH Q5H 07/23/18 11/16/18 [Iprat-Albut 0.5-3(2.5) mg/3 ml] Multivitamin/Folic Acid/Biotin 1 tab PO TID 07/23/18 11/16/18 [Hair, Skin and Nails Tablet] Previous Rx's Medication Instructions Recorded Lisinopril [Zestril] 40 mg PO DAILY #30 tablet 08/01/18 Allergies Allergy/AdvReac Type Severity Reaction Status Date / Time morphine Allergy "BREAKS ME Verified 11/16/18 01:47 OUT/ BEEN A LONG TIME" All systems ED: reviewed and negative except as stated. Review of Systems: As Per HPI Cardiovascular: Denies: chest pain Respiratory: Reports: cough, dyspnea, sputum production Past Medical History - Past Medical History Attestation: Yes The following information was validated with the patient. Source: patient Medical history: Reports: CHF, COPD, hypertension, other Surgical history: Reports: pacemaker/AICD Psychiatric history: Reports: anxiety PEPPER PICKER history: Reports: other - Social History Smoking Status: Former smoker Smokeless Tobacco Status: No Alcohol use: Reports: none Drug use: Reports: none Physical Exam - General Limitations: no limitations General appearance: in distress (Dyspnea) - Head Head exam: atraumatic, normocephalic, normal inspection - Eye Eye exam: Present: normal appearance, PERRL, EOMI - ENT ENT exam: normal exam, normal oropharynx, mucous membranes moist - Neck Neck exam: Present: normal inspection, full ROM, trachea midline - Chest Chest inspection: Present: normal inspection, symmetric chest wall rise. Absent: tenderness - Respiratory Respiratory exam: Present: wheezes, accessory muscle use, other (Tight lung sounds throughout) - Abdominal Exam Abdominal exam: Present: soft, Non-Tender. Absent: tenderness, distention, guarding, rebound, rigidity, organomegaly, Arroyo's sign, Rovsing's sign, tenderness at McBurney's Point - Extremities Exam Extremities exam: Present: normal inspection, full ROM, normal capillary refill. Absent: tenderness, pedal edema - Neurological Exam Neurological exam: Present: alert, oriented X3 - Psychiatric Psychiatric exam: Present: anxious - Skin Skin exam: Present: diaphoresis. Absent: cyanosis Course Course Narrative: On arrival patient is dyspneic on CPAP and diaphoretic. Tight lung sounds throughout. Does have some mild expiratory wheeze. We believe this is decreased secondary to help take the patient's lung tariq are. I do not appreciate any wet sounds to her lung tariq. Again she denies any chest pain. No overt signs of edema to her lower extremities. She has paced on the monitor at this time. We did continue patient on the BiPAP at this time and got a chest x-ray. Chest x-ray did have some mild pulmonary vascular congestion at my reading of the image compared to the previous chest x-ray on November 16. No overt consolidation noted. She was being treated for urinary tract infection from her presentation to the ED but states she did not get her antibiotics filled. The sensitivity to the Escherichia coli was grown on her microbiology at that time was. We will place patient on Levaquin at this time for a COPD exacerbation. She was given 125#Medrol as well as a triple DuoNeb. Patient's lung sounds were still tight after these interventions. We did then place the patient on a magnesium drip. - Reevaluation(s) Reevaluation #1: Patient reassessed. Lung sounds are still with some mild x-ray wheezing and appear very tight after the triple DuoNeb. We will place patient on magnesium sulfate at this time. I did question the patient's CODE STATUS and she is at this time a full code. Time: 07:49 Vital Signs Temperature 97.6 F 11/20/18 06:59 Pulse Rate 114 11/20/18 06:59 Respiratory Rate 43 11/20/18 06:59 Blood Pressure 162/82 11/20/18 06:59 O2 Sat by Pulse Oximetry 95 11/20/18 06:59 Temperature 97.6 F 11/20/18 06:59 Pulse Rate 82 11/20/18 08:54 Respiratory Rate 31 11/20/18 08:54 Blood Pressure 105/70 11/20/18 08:54 O2 Sat by Pulse Oximetry 97 11/20/18 08:54 Oxygen Delivery Oxygen Delivery Bipap Medical Decision Making - Medical Records Medical records reviewed: Yes I reviewed the patient's medical records. - Lab Data Lab results reviewed: Yes I reviewed the patient's lab results. Result diagrams: 11/20/18 07:08 11/20/18 07:08 Lab Results 11/20/18 11/20/18 11/20/18 Range/Units 07:08 07:08 07:08 WBC 18.3 H D (4.3-11.1) K/mcL RBC 4.74 (3.82-4.97) M/mcL Hgb 14.2 (11.5-15.4) g/dL Hct 44.2 (35.3-44.9) % MCV 93.2 (83.0-100.0) fL MCH 30.0 (28.0-33.3) pg MCHC 32.1 (31.6-35.5) g/dL RDW 12.2 (11.5-14.5) % Plt Count 167 (140-400) K/mcL MPV 9.8 (9.4-12.4) fL Immature Gran % 0.8 (0-4) % Seg Neutrophils % 76.2 % Lymphocytes % 9.6 % Monocytes % 8.8 % Eosinophils % 4.2 % Basophils % 0.4 % Neutrophils # 13.9 H (1.6-8.9) K/mcL Lymphocytes # 1.8 (0.6-4.6) K/mcL Monocytes # 1.6 H (0.0-1.3) K/mcL Eosinophils # 0.8 H (0.0-0.6) K/mcL Basophils # 0.1 (0.0-0.2) K/mcL PT 11.6 (9.4-12.1) Seconds INR 1.0 APTT 31.0 (26.0-36.0) Seconds Sample Site ABG pH (7.32-7.45) pH Units ABG pCO2 (35-45) mmHg ABG pO2 (85-104) mmHg ABG HCO3 (21-27) mEq/L ABG Total CO2 (20-26) mEq/L ABG O2 Saturation (95-98) % ABG Base Excess (-2 to 3) mEq/L Earnest Test VBG pH (7.32-7.42) pH Units VBG pCO2 (41-51) mmHg VBG pO2 (25-50) mmHg VBG HCO3 (21-27) mEq/L O2 Delivery Device Inspired O2 (1-15=lpm [id number]=%) Sodium 136 (136-145) mEq/L Potassium 4.9 (3.5-5.1) mEq/L Chloride 97 L (98-107) mEq/L Carbon Dioxide 34 H (23-29) mEq/L BUN 15 (8-23) mg/dL Creatinine 0.80 (0.60-1.20) mg/dL Est GFR ( Amer) > 60 (> 60) Est GFR (Non-Af Amer) > 60 (> 60) BUN/Creatinine Ratio 19 (6-26) Glucose 224 H (70-105) mg/dL Calculated Osmolality 290 (280-300) Lactic Acid (0.5-2.2) mmol/L Calcium 9.2 (8.6-10.3) mg/dL Phosphorus 4.9 H (2.7-4.5) mg/dL Magnesium 1.9 (1.6-2.6) mg/dL Total Bilirubin 0.5 (0.3-1.0) mg/dL Direct Bilirubin 0.1 (0.0-0.2) mg/dL Indirect Bilirubin 0.4 (0.0-1.2) mg/dL AST 20 (13-39) Units/L ALT 22 (7-52) Units/L Alkaline Phosphatase 63 (34-104) Units/L Troponin I 0.03 (< 0.04) ng/mL Serum Total Protein 6.8 (6.4-8.9) g/dL Albumin 3.9 (3.5-5.7) g/dL Globulin 2.9 (2.4-3.5) g/dL Albumin/Globulin Ratio 1.3 (1.1-2.2) Urine Color (Yellow) Urine Clarity (Clear) Urine pH (5.0-8.0) pH Units Ur Specific [place] (1.010-1.025) Urine Protein (Neg-Trace) mg/dL Urine Glucose (UA) (Normal) mg/dL Urine Ketones (Negative) mg/dL Urine Blood (Negative) Urine Nitrite (Negative) Urine Bilirubin (Negative) Urine Urobilinogen (Normal) mg/dL Ur Leukocyte Esterase (Negative) Urine Microscopic RBC (0-3) per hpf Urine Microscopic WBC (0-3) per hpf Ur Squamous Epith Cells (None-Few) per lpf Urine Bacteria (None-Few) per hpf Hyaline Casts (None-Few) per lpf Ur Culture Indicated? (NO) Person Notif of Crit 11/20/18 11/20/18 11/20/18 Range/Units 07:08 07:12 07:26 WBC (4.3-11.1) K/mcL RBC (3.82-4.97) M/mcL Hgb (11.5-15.4) g/dL Hct (35.3-44.9) % MCV (83.0-100.0) fL MCH (28.0-33.3) pg MCHC (31.6-35.5) g/dL RDW (11.5-14.5) % Plt Count (140-400) K/mcL MPV (9.4-12.4) fL Immature Gran % (0-4) % Seg Neutrophils % % Lymphocytes % % Monocytes % % Eosinophils % % Basophils % % Neutrophils # (1.6-8.9) K/mcL Lymphocytes # (0.6-4.6) K/mcL Monocytes # (0.0-1.3) K/mcL Eosinophils # (0.0-0.6) K/mcL Basophils # (0.0-0.2) K/mcL PT (9.4-12.1) Seconds INR APTT (26.0-36.0) Seconds Sample Site ABG pH 7.19 L* (7.32-7.45) pH Units ABG pCO2 93 H* (35-45) mmHg ABG pO2 71 L (85-104) mmHg ABG HCO3 35 H (21-27) mEq/L ABG Total CO2 38 H (20-26) mEq/L ABG O2 Saturation 88 L (95-98) % ABG Base Excess 3 (-2 to 3) mEq/L Earnest Test VBG pH 7.19 L* (7.32-7.42) pH Units VBG pCO2 88 H* (41-51) mmHg VBG pO2 58 H (25-50) mmHg VBG HCO3 33 H (21-27) mEq/L O2 Delivery Device BiPAP Inspired O2 36.0 (1-15=lpm [id number]=%) Sodium (136-145) mEq/L Potassium (3.5-5.1) mEq/L Chloride (98-107) mEq/L Carbon Dioxide (23-29) mEq/L BUN (8-23) mg/dL Creatinine (0.60-1.20) mg/dL Est GFR ( Amer) (> 60) Est GFR (Non-Af Amer) (> 60) BUN/Creatinine Ratio (6-26) Glucose (70-105) mg/dL Calculated Osmolality (280-300) Lactic Acid 0.8 (0.5-2.2) mmol/L Calcium (8.6-10.3) mg/dL Phosphorus (2.7-4.5) mg/dL Magnesium (1.6-2.6) mg/dL Total Bilirubin (0.3-1.0) mg/dL Direct Bilirubin (0.0-0.2) mg/dL Indirect Bilirubin (0.0-1.2) mg/dL AST (13-39) Units/L ALT (7-52) Units/L Alkaline Phosphatase (34-104) Units/L Troponin I (< 0.04) ng/mL Serum Total Protein (6.4-8.9) g/dL Albumin (3.5-5.7) g/dL Globulin (2.4-3.5) g/dL Albumin/Globulin Ratio (1.1-2.2) Urine Color (Yellow) Urine Clarity (Clear) Urine pH (5.0-8.0) pH Units Ur Specific [place] (1.010-1.025) Urine Protein (Neg-Trace) mg/dL Urine Glucose (UA) (Normal) mg/dL Urine Ketones (Negative) mg/dL Urine Blood (Negative) Urine Nitrite (Negative) Urine Bilirubin (Negative) Urine Urobilinogen (Normal) mg/dL Ur Leukocyte Esterase (Negative) Urine Microscopic RBC (0-3) per hpf Urine Microscopic WBC (0-3) per hpf Ur Squamous Epith Cells (None-Few) per lpf Urine Bacteria (None-Few) per hpf Hyaline Casts (None-Few) per lpf Ur Culture Indicated? (NO) Person Notif of Maritza CARRENO 11/20/18 11/20/18 Range/Units 08:00 08:12 WBC (4.3-11.1) K/mcL RBC (3.82-4.97) M/mcL Hgb (11.5-15.4) g/dL Hct (35.3-44.9) % MCV (83.0-100.0) fL MCH (28.0-33.3) pg MCHC (31.6-35.5) g/dL RDW (11.5-14.5) % Plt Count (140-400) K/mcL MPV (9.4-12.4) fL Immature Gran % (0-4) % Seg Neutrophils % % Lymphocytes % % Monocytes % % Eosinophils % % Basophils % % Neutrophils # (1.6-8.9) K/mcL Lymphocytes # (0.6-4.6) K/mcL Monocytes # (0.0-1.3) K/mcL Eosinophils # (0.0-0.6) K/mcL Basophils # (0.0-0.2) K/mcL PT (9.4-12.1) Seconds INR APTT (26.0-36.0) Seconds Sample Site R Radial ABG pH 7.31 L D (7.32-7.45) pH Units ABG pCO2 61 H D (35-45) mmHg ABG pO2 104 (85-104) mmHg ABG HCO3 31 H (21-27) mEq/L ABG Total CO2 33 H (20-26) mEq/L ABG O2 Saturation 97 (95-98) % ABG Base Excess 3 (-2 to 3) mEq/L Earnest Test N/A VBG pH (7.32-7.42) pH Units VBG pCO2 (41-51) mmHg VBG pO2 (25-50) mmHg VBG HCO3 (21-27) mEq/L O2 Delivery Device BiPAP Inspired O2 35.0 (1-15=lpm [id number]=%) Sodium (136-145) mEq/L Potassium (3.5-5.1) mEq/L Chloride (98-107) mEq/L Carbon Dioxide (23-29) mEq/L BUN (8-23) mg/dL Creatinine (0.60-1.20) mg/dL Est GFR ( Amer) (> 60) Est GFR (Non-Af Amer) (> 60) BUN/Creatinine Ratio (6-26) Glucose (70-105) mg/dL Calculated Osmolality (280-300) Lactic Acid (0.5-2.2) mmol/L Calcium (8.6-10.3) mg/dL Phosphorus (2.7-4.5) mg/dL Magnesium (1.6-2.6) mg/dL Total Bilirubin (0.3-1.0) mg/dL Direct Bilirubin (0.0-0.2) mg/dL Indirect Bilirubin (0.0-1.2) mg/dL AST (13-39) Units/L ALT (7-52) Units/L Alkaline Phosphatase (34-104) Units/L Troponin I (< 0.04) ng/mL Serum Total Protein (6.4-8.9) g/dL Albumin (3.5-5.7) g/dL Globulin (2.4-3.5) g/dL Albumin/Globulin Ratio (1.1-2.2) Urine Color Yellow (Yellow) Urine Clarity Clear (Clear) Urine pH 5.5 (5.0-8.0) pH Units Ur Specific [place] 1.016 (1.010-1.025) Urine Protein 30 H (Neg-Trace) mg/dL Urine Glucose (UA) Normal (Normal) mg/dL Urine Ketones Negative (Negative) mg/dL Urine Blood Negative (Negative) Urine Nitrite Negative (Negative) Urine Bilirubin Negative (Negative) Urine Urobilinogen Normal (Normal) mg/dL Ur Leukocyte Esterase Negative (Negative) Urine Microscopic RBC 0-3 (0-3) per hpf Urine Microscopic WBC 0-3 (0-3) per hpf Ur Squamous Epith Cells Many H (None-Few) per lpf Urine Bacteria Few (None-Few) per hpf Hyaline Casts Moderate H (None-Few) per lpf Ur Culture Indicated? YES A (NO) Person Notif of Crit - Radiology Data Radiology results reviewed: Yes I reviewed the patient's radiology results. Chest X-Ray 11/20/18 07:07 IMPRESSION: No acute cardiopulmonary disease D/ / Chris Whitehead MD / Chris Whitehead MD Interpreting Provider: Chris Whitehead MD - EKG Data EKG #1 EKG attestation: Yes I reviewed and interpreted this EKG. EKG results narrative: Paced rhythm at a rate of 108. OH interval is 111. QRS duration is 1:30. QTC is 383. QTC is 514. No signs of acute ischemia. No significant change from previous EKG dated 11/16/2018. Attestation Statement - Attestation Attestation: I have seen this patient with the resident physician, I have personally evaluated this patient. I had reviewed the chart and document dictation by the resident physician and aM in agreement with the information documented by the resident physician. Please see documentation by the resident physician for complete chart including past medical history, family medical history, review of systems, current history and physical and laboratory and imaging studies. I was present for all procedures, provided direct supervision for all procedures, was present for the entirety of all procedures and provided direct guidance during the procedures. Please see documentation by the resident physician for any procedures performed. I have reviewed all interpretations of EKGs, and reviewed all EKGs performed on patient's as well. I have also reviewed reports of imaging as provided by radiology. Patient presented to the emergency department with shortness of breath since this morning. Long-standing history of COPD and CHF, require intubation in the past. Has had a little bit of a cough no reported fevers no increased swelling. Paramedics report that she had significant difficulty with breathing and her oxygen had ran out overnight, they provided her with [id number] assistance secondary to her tachypnea and transported her, on CPAP thereafter. Patient reports that CPAP does feel like it is helping her. She denies chest pain. Upon arrival, noted tachypnea, patient immediately switched to BiPAP, she has significant only diminished breath sounds diffusely bilaterally with faint wheezes, no obvious focal rales rhonchi or crackles. Cardiovascular regular rhythm, tachycardic with a heart rate of 102 on the monitor no obvious murmurs rubs or gallops no significant JVD there is trace bilateral lower extremity edema no unilateral swelling palpable cord Generous Homans sign or clinical evidence of DVT she is slightly diaphoretic in appearance. Cranial nerves are grossly intact no obvious focal neurologic findings no rash no petechiae. EKG was a electronic paced rhythm, no evidence of acute change from prior no evidence of acute ST elevation or ST depression, when compared to prior EKGs there is no acute difference. Chest x-ray as interpreted by radiology showed no acute findings. ABG revealed a pH of 7.2 with a PCO2 of 90, no other acute abnormality. Cardiac enzymes were negative renal panel CBC within acceptable limits apart from a leukocytosis. We did review her recent urine culture from 2 days ago when the patient was seen in the emergency department which is positive for Escherichia coli, sensitive to quinolones, therefore the patient was given IV Levaquin for both COPD exacerbation as well as a UTI. Patient was given IV steroids, and in-line breathing treatments with BiPAP, she had slight improvement, was then given IV magnesium, with the magnesium, her blood pressure started to down trend she was given a fluid bolus and we slowed down and then eventually stopped her magnesium, with significant return of normal blood pressures. She did not have any symptoms during her borderline low blood pressures which responded to fluids and stopping the magnesium she had no hypotension prior to initiating magnesium. She was admitted to the hospital service for further management. Total critical care time as provided by myself excluding any procedures performed, was 50 minutes. We did obtain a repeat ABG, which demonstrates improvement with a pH increased to 7.3, PCO2 decreased to 63. Patient continues to clinically improve prior to admission.
[2018-11-20] MEDS ORDERED: 0.9 % Sodium Chloride 1,000 ML ONE (07:15)
[2018-11-20] MEDS ORDERED: methylPREDNISolone 125 MG/2 ML VIAL ONE (07:15)
[2018-11-20 07:18] LABS: ABG Base Excess 3 mEq/L (-2 to 3); ABG HCO3 35 mEq/L (21-27); ABG Oxygen Saturation 88 % (95-98); ABG PCO2 93 mmHg (35-45); ABG PH 7.19 pH Units (7.32-7.45); ABG PO2 71 mmHg (85-104); ABG TCO2 38 mEq/L (20-26)
[2018-11-20 07:25] LABS: Basophils # 0.1 K/mcL (0.0-0.2); Basophils % 0.4 %; Eosinophils # 0.8 K/mcL (0.0-0.6); Eosinophils % 4.2 %; Hematocrit 44.2 % (35.3-44.9); Hemoglobin 14.2 g/dL (11.5-15.4); Immature Granulocytes % 0.8 % (0-4); Lymphocytes # 1.8 K/mcL (0.6-4.6); Lymphocytes % 9.6 %; Mean Corpuscular HGB Conc 32.1 g/dL (31.6-35.5); Mean Corpuscular Volume 93.2 fL (83.0-100.0); Mean Platelet Volume 9.8 fL (9.4-12.4); Monocytes # 1.6 K/mcL (0.0-1.3); Monocytes % 8.8 %; Neutrophils # 13.9 K/mcL (1.6-8.9); Platelet Count 167 K/mcL (140-400); Red Blood Count 4.74 M/mcL (3.82-4.97); Red Cell Distribution Width 12.2 % (11.5-14.5); Segmented Neutrophils % 76.2 %; White Blood Count 18.3 K/mcL (4.3-11.1)
[2018-11-20] MEDS ORDERED: levoFLOXacin 750 MG/150 ML 750 MG/150 ML BAG IVPB STA (07:25)
[2018-11-20 07:32] LABS: Prothrombin Time 11.6 Seconds (9.4-12.1)
[2018-11-20 07:33] LABS: VBG HCO3 33 mEq/L (21-27); VBG PCO2 88 mmHg (41-51); VBG PH 7.19 pH Units (7.32-7.42); VBG PO2 58 mmHg (25-50)
[2018-11-20 07:41] LABS: Alanine Aminotransferase 22 Units/L (7-52); Albumin 3.9 g/dL (3.5-5.7); Albumin/Globulin Ratio 1.3 (1.1-2.2); Alkaline Phosphatase 63 Units/L (34-104); Aspartate Amino Transferase 20 Units/L (13-39); Bilirubin,Direct 0.1 mg/dL (0.0-0.2); Bilirubin,Indirect 0.4 mg/dL (0.0-1.2); Bilirubin,Total 0.5 mg/dL (0.3-1.0); Blood Urea Nitrogen 15 mg/dL (8-23); Calcium 9.2 mg/dL (8.6-10.3); Carbon Dioxide 34 mEq/L (23-29); Chloride 97 mEq/L (98-107); Globulin 2.9 g/dL (2.4-3.5); Glucose 224 mg/dL (70-105); Magnesium 1.9 mg/dL (1.6-2.6); Osmolality,Calculated 290 (280-300); Phosphorous 4.9 mg/dL (2.7-4.5); Potassium 4.9 mEq/L (3.5-5.1); Sodium 136 mEq/L (136-145); Total Protein 6.8 g/dL (6.4-8.9)
[2018-11-20 08:10] LABS: Bilirubin,Urine Negative (Negative); Blood,Urine Negative (Negative); Clarity,Urine Clear (Clear); Color,Urine Yellow (Yellow); Glucose,Urine (UA) Normal (Normal); Ketones,Urine Negative (Negative); Leukocyte Esterase,Urine Negative (Negative); Nitrite,Urine Negative (Negative); PH,Urine 5.5 pH Units (5.0-8.0); Protein,Urine 30 mg/dL (Neg-Trace); Specific Gravity,Urine 1.016 (1.010-1.025); Urobilinogen,Urine Normal (Normal)
[2018-11-20 08:12] LABS: RBC,Urine 0-3 per hpf (0-3); Squamous Epithelial Cell,Urine Many per lpf (None-Few); WBC,Urine 0-3 per hpf (0-3)
[2018-11-20 08:17] LABS: ABG Base Excess 3 mEq/L (-2 to 3); ABG HCO3 31 mEq/L (21-27); ABG Oxygen Saturation 97 % (95-98); ABG PCO2 61 mmHg (35-45); ABG PH 7.31 pH Units (7.32-7.45); ABG PO2 104 mmHg (85-104); ABG TCO2 33 mEq/L (20-26)
[2018-11-20 08:22] LABS: Bacteria,Urine Few per hpf (None-Few)
[2018-11-20 08:23] LABS: Hyaline Casts,Urine Moderate per lpf (None-Few)
[2018-11-20] MEDS ORDERED: Naloxone 0.4 MG/ML INJ IVP PRN (08:36)
[2018-11-20] MEDS ORDERED: Ondansetron 4 MG/2 ML VIAL IVP PRN (08:36)
[2018-11-20 08:48] LABS: Troponin I 0.03 ng/mL (< 0.04)
[2018-11-20] MEDS ORDERED: Isovue-370 500 ML BOTTLE IVP ONE (08:50)
[2018-11-20] MEDS ORDERED: 0.9 % Sodium Chloride 500 ML IVC PRN (09:07)
--- NOTE | 2018-11-20 09:15 | Internal Med History&Physical ---
Date of Encounter: 11/20/18 Time of Encounter: 08:45 Internal Medicine - H&P: HPI Chief complaint: SOB Admitted From: Home History of present illness: Ms. Corrales is a 72 year old female with history of oxygen dependent COPD, heart failure with preserved EF, hypertension, s/p PM insertion for bradycardia, presented to the ED with 2 day history of shortness of breath. Of note, patient was seen 4 days ago for a similar complaint from her family member but pt told the ED physician at that time that she feels like she is at her baseline and was subsequently discharged. She did however have temp of 100.7 during that visit. She states that, since she was discharged on Friday, she started to feel short of breath that was gradually worsening. It was associated with intermittent cough and sputum production. Denies any chest pain, hemoptysis, palpitation, orthopnea, PND, leg swelling. No recent surgery or prolonged immobilization. She denies dysuria or urinary frequency but does endorse suprapubic discomfort. No flank pain, fever/chills, nausea/vomiting, joint pain, or rash. She also ran out of her home oxygen recently. Upon arrival of the EMS, she was noted to be profoundly hypoxic and was ventilated with BVM. In the ED, he was tachycardic, tachypneic, and was maintaining O2 saturation on BiPAP. Labwork showed leukocytosis of 18.3, ABG consistent with respiratory acidosis, negative troponin and lactic acid. EKG shows sinus tachycardia. Urinalysis was actually negative for leukocyte esterase or nitrite. chest x-ray was also negative for acute cardiopulmonary process. After an hour on BiPAP, her ABG improved to 7.31 with CO2 decreasing from 90 - 60. Pt was given IV Levaquin, IV Solu-Medrol, bronchodilators, and admitted for further management. Past Med Surg Social Fam HX - Past Medical History Medical history: CHF, COPD, hypertension, other Additional medical history: tachycardia. obesity. hyperglycemia Psychiatric history: anxiety - Past Surgical History Surgical History: pacemaker/AICD Additional surgical history: uterus removed - Social History Smoking Status: Former smoker Smokeless Tobacco Status: No Alcohol use: none Drug use: none - Family History Brother Hx Family Cardiac Disorders: Yes (afib) Daughter Hx Family Cardiac Disorders: Yes (tachycardia) Internal Medicine - H&P: Meds Albuterol Sulfate [Ventolin Hfa] 2 puff IH Q4H 11/24/17 [History] Aspirin [Adult Aspirin] 81 mg PO DAILY 11/24/17 [History] Carvedilol 12.5 mg PO BID 11/24/17 [History] DiphenhydraMINE [Benadryl] 25 mg PO HS 11/24/17 [History] Furosemide [Lasix] 20 mg PO DAILY 11/24/17 [History] LORazepam [Ativan] 0.5 mg PO BID PRN 11/24/17 [History] Acetaminophen [Tylenol] 500 mg PO 4XW PRN 07/23/18 [History] Cholecalciferol (D-3) [Vitamin D] 5,000 unit PO DAILY 07/23/18 [History] Ipratropium/Albuterol Sulfate [Iprat-Albut 0.5-3(2.5) mg/3 ml] 3 ml IH Q5H 07/23/18 [History] Multivitamin/Folic Acid/Biotin [Hair, Skin and Nails Tablet] 1 tab PO TID 07/23/18 [History] Lisinopril [Zestril] 40 mg PO DAILY #30 tablet 08/01/18 [Rx] Allergy/AdvReac Type Severity Reaction Status Date / Time morphine Allergy "BREAKS ME Verified 11/16/18 01:47 OUT/ BEEN A LONG TIME" All Systems PM: A 10-system review of systems was performed and is negative for pertinent findings except as documented above in the HPI. - Constitutional Vitals: Temp Pulse Resp BP Pulse Ox 97.6 F 82 31 105/70 97 11/20/18 06:59 11/20/18 08:54 11/20/18 08:54 11/20/18 08:54 11/20/18 08:54 Exam: General: Alert and oriented, moderate respiratory distress. HEENT:EOMI, pupils equal, round and reactive. Cardiovascular:Normal S1 & S2, No JVD. Pulse regular but tachycardic Lungs: extremely diminished with scattered wheezes Abdomen:Soft, mild suprapubic tenderness Extremities:No deformity or swelling Neurological:Normal cognition and motor skills. Non-focal Skin:Normal color, no rash, no lesions. Pulses:Carotid and radial pulses normal +2. Rest of the physical exam is non contributory Internal Med - H&P Results - Labs CBC & Chem 7: 11/20/18 07:08 11/20/18 07:08 Labs: Short CBC 11/20/18 Range/Units 07:08 WBC 18.3 H D (4.3-11.1) K/mcL Hgb 14.2 (11.5-15.4) g/dL Hct 44.2 (35.3-44.9) % Plt Count 167 (140-400) K/mcL Neutrophils # 13.9 H (1.6-8.9) K/mcL BMP 11/20/18 07:08 Sodium 136 Potassium 4.9 Chloride 97 L Carbon Dioxide 34 H BUN 15 Glucose 224 H Calcium 9.2 Cardiac Enzymes 11/20/18 Range/Units 07:08 Troponin I 0.03 (< 0.04) ng/mL Liver Function 11/20/18 Range/Units 07:08 Total Bilirubin 0.5 (0.3-1.0) mg/dL Direct Bilirubin 0.1 (0.0-0.2) mg/dL AST 20 (13-39) Units/L ALT 22 (7-52) Units/L Alkaline Phosphatase 63 (34-104) Units/L Albumin 3.9 (3.5-5.7) g/dL Urine 11/20/18 Range/Units 08:00 Urine Color Yellow (Yellow) Urine Clarity Clear (Clear) Urine pH 5.5 (5.0-8.0) pH Units Ur Specific [place] 1.016 (1.010-1.025) Urine Protein 30 H (Neg-Trace) mg/dL Urine Glucose (UA) Normal (Normal) mg/dL - ABG Interpretation ABG results: 11/20/18 11/20/18 11/20/18 07:12 07:26 08:12 ABG pH 7.19 L* 7.31 L D ABG pCO2 93 H* 61 H D ABG pO2 71 L 104 ABG HCO3 35 H 31 H ABG Total CO2 38 H 33 H ABG O2 Saturation 88 L 97 ABG Base Excess 3 3 VBG pH 7.19 L* VBG pCO2 88 H* VBG pO2 58 H VBG HCO3 33 H - Impressions ITS Impressions Chest X-Ray 11/20/18 07:07 IMPRESSION: No acute cardiopulmonary disease D/ / Chris Whitehead MD / Chris Whitehead MD Interpreting Provider: Chris Whitehead MD - Assessment and Plan (1) Acute on chronic respiratory failure with hypoxia and hypercapnia Current Visit: Yes Status: Acute Assessment and plan: presented with SOB associated with cough and sputum production. Was found hypo xic by EMS and ABG in the ED confirms respiratory acidosis likely secondary to COPD exacerbation CXR is negative for any obvious consolidation; however, due to her advanced COPD, subtle consolidative findings may not be detected on plain film will obtain CT to look for PE/PNA strep/legionella ag, respiratory viral panel, sputum culture started on levaquin, steroid, bronchodilators, continue Despite improvement in her ABG, patient continues to be tachypneic. Will monitor closely in 2N/ICU and will have low threshold for intubation if work of breathing continues to be laborious. Keep on BiPAP for now (2) Acute exacerbation of chronic obstructive airways disease Current Visit: Yes Status: Acute Assessment and plan: As above for respiratory failure (3) (HFpEF) heart failure with preserved ejection fraction Current Visit: No Status: Chronic Assessment and plan: does not appear to be in decompensation Echocardiogram in July 2018 showed EF of 50% with moderate LV diastolic dysfunction Qualifiers: Heart failure chronicity: chronic Qualified Code(s): I50.32 - Chronic diastolic (congestive) heart failure (4) Obesity (BMI 30.0-34.9) Current Visit: No Status: Chronic Assessment and plan: lifestyle modifications emphasized (5) Hypertension Current Visit: No Status: Chronic Assessment and plan: holding home meds for now Qualifiers: Hypertension type: essential hypertension Qualified Code(s): I10 - Essential (primary) hypertension (6) DVT prophylaxis Current Visit: Yes Status: Acute Assessment and plan: SQ heparin - Time Spent With Patient Total time spent is greater than 50% in coordination of care (as documented) at patient's floor/unit and/or counseling patient: Greater than 35 minutes
[2018-11-20 09:16] LABS: BUN/Creatinine Ratio 19 (6-26); eGFR For African Americans > 60 (> 60); eGFR For Non-African Americans > 60 (> 60)
[2018-11-20] MEDS: Ipratropium/Albuterol Neb 3 ML IH SCH ×3 (10:26→20:03)
[2018-11-20] MEDS ORDERED: Dextrose Gel 15 GM/37.5 ML TUBE PO PRN ×2 (11:50)
[2018-11-20] MEDS ORDERED: D5% in Water 1,000 ML IVC PRN (11:50)
[2018-11-20] MEDS ORDERED: *HR* Dextrose 50 % in Water (Syg) 50 ML SYRINGE IVP PRN (11:50)
[2018-11-20] MEDS ORDERED: *HR* Metoprolol 5 MG/5 ML VIAL IVP PRN ×2 (12:17→13:01)
[2018-11-20] MEDS ORDERED: *HR* Metoprolol 5 MG/5 ML VIAL IVP ONE (12:50)
[2018-11-20 14:30] LABS: Adenovirus Not Detected (Not Detect); Coronavirus 229E Not Detected (Not Detect); Coronavirus HKU1 Not Detected (Not Detect); Coronavirus NL63 Not Detected (Not Detect); Coronavirus OC43 Not Detected (Not Detect)
[2018-11-20 14:31] LABS: Bordetella Pertussis Not Detected (Not Detect); Chlamydophila pneumoniae Not Detected (Not Detect); Human Metapneumovirus Not Detected (Not Detect); Human Rhinovirus/Enterovirus Not Detected (Not Detect); Influenza A Subtype 2009 H1 Not Detected (Not Detect); Influenza A Untypeable Not Detected (Not Detect); Influenza B Not Detected (Not Detect); Mycoplasma pneumoniae Not Detected (Not Detect); Parainfluenza Virus 1 Not Detected (Not Detect); Parainfluenza Virus 2 Not Detected (Not Detect); Parainfluenza Virus 3 Not Detected (Not Detect); Parainfluenza Virus 4 Not Detected (Not Detect); Respiratory Syncytial Virus Not Detected (Not Detect)
[2018-11-20] MEDS: Insulin LISPRO 300 UNITS/3 ML VIAL SQ SCH (16:32)
[2018-11-20] MEDS: *HR* Heparin 5,000 UNIT/ML VIAL SQ SCH ×2 (17:30→18:25)
[2018-11-20] MEDS: MethylPREDNISolone 40 MG/ML VIAL IVP SCH (17:30)
[2018-11-20] MEDS ORDERED: Insulin LISPRO 300 UNITS/3 ML VIAL SQ SCH (21:00)
[2018-11-20] MEDS: *HR* LORazepam 0.5 MG TABLET PO PRN (23:34)
[2018-11-21] MEDS: Ipratropium/Albuterol Neb 3 ML IH SCH ×5 (00:47→15:36)
[2018-11-21] MEDS: *HR* Heparin 5,000 UNIT/ML VIAL SQ SCH (05:48)
[2018-11-21] MEDS: MethylPREDNISolone 40 MG/ML VIAL IVP SCH (05:48)
[2018-11-21 05:51] LABS: Hematocrit 35.7 % (35.3-44.9); Immature Granulocytes % 0.5 % (0-4); Lymphocytes # 0.6 K/mcL (0.6-4.6); Lymphocytes % 8.7 %; Mean Corpuscular HGB Conc 33.1 g/dL (31.6-35.5); Mean Corpuscular Hemoglobin 30.6 pg (28.0-33.3); Mean Corpuscular Volume 92.5 fL (83.0-100.0); Mean Platelet Volume 10.2 fL (9.4-12.4); Monocytes # 0.5 K/mcL (0.0-1.3); Neutrophils # 6.1 K/mcL (1.6-8.9); Platelet Count 151 K/mcL (140-400); Red Blood Count 3.86 M/mcL (3.82-4.97); Red Cell Distribution Width 11.8 % (11.5-14.5); Segmented Neutrophils % 83.8 %
[2018-11-21 06:02] LABS: Hemoglobin 11.8 g/dL (11.5-15.4); White Blood Count 7.3 K/mcL (4.3-11.1)
[2018-11-21 06:05] LABS: BUN/Creatinine Ratio 20 (6-26); Blood Urea Nitrogen 13 mg/dL (8-23); Calcium 8.9 mg/dL (8.6-10.3); Carbon Dioxide 29 mEq/L (23-29); Chloride 100 mEq/L (98-107); Glucose 161 mg/dL (70-105); Magnesium 1.9 mg/dL (1.6-2.6); Osmolality,Calculated 286 (280-300); Potassium 4.2 mEq/L (3.5-5.1); Sodium 136 mEq/L (136-145); eGFR For African Americans > 60 (> 60); eGFR For Non-African Americans > 60 (> 60)
[2018-11-21] MEDS: Insulin LISPRO 300 UNITS/3 ML VIAL SQ SCH ×2 (07:52→12:38)
[2018-11-21] MEDS: *HR* LORazepam 0.5 MG TABLET PO PRN ×2 (07:52→15:44)
[2018-11-21] MEDS ORDERED: Furosemide 20 MG TABLET PO SCH (09:00)
[2018-11-21] MEDS ORDERED: levoFLOXacin 750 MG/150 ML 750 MG/150 ML BAG IVPB SCH (09:00)
[2018-11-21] MEDS ORDERED: Aspirin Enteric Coated 81 MG Tablet PO SCH (09:00)
[2018-11-21] MEDS ORDERED: Budesonide/Formoterol 160/4.5 1 PUFF INH IH SCH (10:00)
[2018-11-21 11:36] VITALS: BP 129/65
--- NOTE | 2018-11-21 13:25 | Discharge Summary ---
- NOTES TO OUTPATIENT PROVIDER Notes to Outpatient Provider: Post hospital discharge for COPD exacerbation Orders not resulted at time of discharge: Pending orders 11/20/18 07:07 ECG 12 lead ECG [ECG] Stat 11/20/18 07:41 Culture,Blood [BC] Stat 11/20/18 09:21 Culture,Sputum with Gram Stain [RM] Routine Date of Encounter: 11/21/18 Time of Encounter: 13:19 - Discharge Diagnosis (1) Acute exacerbation of chronic obstructive airways disease Priority: Primary Status: Acute Assessment and Plan: Result pulmonary exam is benign, work up was unyielding. She attributes her shortness of breath to being in a hot environment and faulty oxygen tubing which also has been fixed for patient she lives in a trailer she is requesting to be discharged. She stated that her son has fixed the air condition unit. She does admit to being compliant with her chronic inhalers and denies tobacco use. We will discharge home on a azithromycin, budesonide nebulizer to be using addition to her current DuoNeb treatments. (2) Acute on chronic respiratory failure with hypoxia and hypercapnia Priority: Secondary Status: Acute Assessment and Plan: She had extensive workup which were unyielding. She is back at baseline. Discussed with patient regarding getting established with a ecological technical officer as an outpatient presented with SOB associated with cough and sputum production. Was found hypoxic by EMS and ABG in the ED confirms respiratory acidosis likely secondary to COPD exacerbation CXR is negative for any obvious consolidation; however, due to her advanced COPD, subtle consolidative findings may not be detected on plain film will obtain CT to look for PE/PNA strep/legionella ag, respiratory viral panel, sputum culture started on levaquin, steroid, bronchodilators, continue Despite improvement in her ABG, patient continues to be tachypneic. Will monitor closely in 2N/ICU and will have low threshold for intubation if work of breathing continues to be laborious. Keep on BiPAP for now (3) Hypertension Priority: Secondary Status: Chronic Assessment and Plan: Normotensive Will resume home meds Qualifiers: Hypertension type: other secondary hypertension Qualified Code(s): I15.8 - Other secondary hypertension (4) DVT prophylaxis Priority: Secondary Status: Acute Assessment and Plan: SQ heparin (5) (HFpEF) heart failure with preserved ejection fraction Priority: Secondary Status: Chronic Assessment and Plan: She had a limited echo report which revealed it to be 50% with normal right ventricular structure and function. She is -0.4 L on exam no evidence of volume overload does not appear to be in decompensation Echocardiogram in July 2018 showed EF of 50% with moderate LV diastolic dysf unction Qualifiers: Heart failure chronicity: chronic Qualified Code(s): I50.32 - Chronic diastolic (congestive) heart failure (6) Obesity (BMI 30.0-34.9) Priority: Secondary Status: Chronic Assessment and Plan: lifestyle modifications emphasized Hospital course: Ms. Corrales is a 72 year old female Was hospitalized with COPD exacerbation. Due to her presentation and comorbid conditions she had extensive workup which included a CTA, chest x-ray as well as serologic workup all unremarkable. She attributed her exacerbation 2 malfunctioning of oxygen tubing as well as the heat. She denies any known triggers. She does not use tobacco products and was requesting to be discharged. She will be discharged home on azithromycin, budesonide and a seven-day course of Ativan which she admits to some generalized anxiety Discharge discussed with: patient, nurse - Time Spent with Patient Total time spent providing and/or coordinating discharge services:31 mins - Discharge Medications Prescriptions: New Budesonide Neb [Pulmicort Neb] 0.5 mg IH BIDR #60 ampul.neb Azithromycin [Zithromax] 500 mg PO DAILY 5 Days tablet Continued Albuterol Sulfate [Ventolin Hfa] 2 puff IH Q4H PRN PRN Reason: Shortness Of Breath Carvedilol 12.5 mg PO BID DiphenhydraMINE [Benadryl] 25 mg PO HS PRN PRN Reason: SLEEP/BREATHING Acetaminophen [Tylenol] 1,000 mg PO DAILY PRN PRN Reason: Pain Cholecalciferol (D-3) [Vitamin D] 3,000 unit PO DAILY Multivitamin/Folic Acid/Biotin [Hair, Skin and Nails Tablet] 1 tab PO 2-3XD Aspirin Enteric Coated [Aspirin EC] 81 mg PO DAILY Fluticasone/Umeclidin/Vilanter [Trelegy Ellipta 100-62.5-25] 1 puff IH DAILY Lisinopril [Zestril] 40 mg PO DAILY LORazepam [Ativan] 0.5 mg PO BID PRN 7 Days #14 tablet PRN Reason: Anxiety Ipratropium/Albuterol Sulfate [Iprat-Albut 0.5-3(2.5) mg/3 ml] 3 ml IH QID #100 ampul.neb Furosemide [Lasix] 20 mg PO DAILY #30 tablet Home Medications: Albuterol Sulfate [Ventolin Hfa] 2 puff IH Q4H PRN 11/24/17 [History] Carvedilol 12.5 mg PO BID 11/24/17 [History] DiphenhydraMINE [Benadryl] 25 mg PO HS PRN 11/24/17 [History] Acetaminophen [Tylenol] 1,000 mg PO DAILY PRN 07/23/18 [History] Cholecalciferol (D-3) [Vitamin D] 3,000 unit PO DAILY 07/23/18 [History] Multivitamin/Folic Acid/Biotin [Hair, Skin and Nails Tablet] 1 tab PO 2-3XD 07/23/18 [History] Aspirin Enteric Coated [Aspirin EC] 81 mg PO DAILY 11/20/18 [History] Fluticasone/Umeclidin/Vilanter [Trelegy Ellipta 100-62.5-25] 1 puff IH DAILY 11/20/18 [History] Lisinopril [Zestril] 40 mg PO DAILY 11/20/18 [History] Azithromycin [Zithromax] 500 mg PO DAILY 5 Days tablet 11/21/18 [Rx] Budesonide Neb [Pulmicort Neb] 0.5 mg IH BIDR #60 ampul.neb 11/21/18 [Rx] Furosemide [Lasix] 20 mg PO DAILY #30 tablet 11/21/18 [Rx] Ipratropium/Albuterol Sulfate [Iprat-Albut 0.5-3(2.5) mg/3 ml] 3 ml IH QID #100 ampul.neb 11/21/18 [Rx] LORazepam [Ativan] 0.5 mg PO BID PRN 7 Days #14 tablet 11/21/18 [Rx] Allergies/Adverse Reactions: Allergy/AdvReac Type Severity Reaction Status Date / Time morphine Allergy "BREAKS ME Verified 11/20/18 13:06 OUT/ BEEN A LONG TIME" prednisone Allergy See Verified 11/20/18 13:14 Comments Date of admission: 11/20/18 08:46 Primary care physician: Nash Ren MD Consults: 11/20/18 10:00 Consult to Fur Examiner [CONS] Routine Reason for SW Consult: Oxygen not working at home Did not fill antibiotic script after being at hospitial last week Discharging clinician: Eduardo Flynn Anticipated date of discharge: 11/21/18 - Constitutional Vitals: Temp Pulse Resp BP Pulse Ox 98.2 F 70 18 129/65 96 11/21/18 11:28 11/21/18 11:28 11/21/18 11:28 11/21/18 11:28 11/21/18 11:28 Exam: GENERAL: NAD, A&O x3, pleasant and conversant SKIN: No skin lesions or rashes, non-jaundiced EYES: EOMI, PERRLA, no sclera icterus HENT: Head atraumatic, no facial asymmetry, frontal and maxillary sinus non- tender, normal hearing, oropharynx and mucosa moist and without any exudates NECK: No cervical lymphadenopathy, trachea midline, thyroid is palpable does not appear enlarged LUNGS: vesicular breath sounds, clear to auscultation, no wheeze, rhonchi, rales or crackles. Non labored respirations HEART: Normal rate and rhythm, no murmurs or rubs ABDOMEN: soft, non-tender, non-distended, bowel sounds x 4 normoactive EXTRMITIES: No LE asymmetry, No LE edema, pedal pulses 1+ and radial pulses 2 + and equal bilaterally NEURO: Speech and comprehension appears intact. PSYCH: Cooperative, non- anxious or irritable, mood and affect is appropriate - Patient Status Disposition: Home, Self-Care Condition: Fair Functional capacity at discharge: independent ambulation Overall status at discharge: patient is back to baseline - Discharge Instructions Forms: ED Satisfaction Letter - Diet and Activity Activity: resume usual activities as tolerated, wear oxygen at all times Diet: low fat, low cholesterol
--- NOTE | 2018-11-21 17:57 | Electrocardiograph Report ---
[address] [place], [place] [address] Test Date: 2018-11-20 Pat Name: Rossy Corrales Department: [id number] Room: 2A Gender: F Diamond Mounter: : [id number] Requested By: Rani Toro Order Number: [id number] Reading MD: Yessica Becker Measurements Intervals [place] Rate: 108 P: 54 VT: 111 QRS: 145 QRSD: 130 T: -32 QT: 383 QTc: 514 Interpretive Statements Artifact Ventricular paced rhythm Electronically Signed On 11-21-2018 17:55:48 EDT by Yessica Becker
== END 2018-11-21 16:10 | disposition home or self-care (01) | DRG 190 ==
LOC: ICNU 06:57 → EMEROOARM 06:57 → OBSVTOIN 08:46 → SUATTDRO 08:46 → ICNU 09:41 → 2ANU 11-21 11:07
PROVIDERS: ADMIT Internal Medicine; ATTEND Pharmacist